=== PATIENT | female | born 1940 | race Caucasian/White ===

== ENCOUNTER 2019-08-06 15:19 | Outpatient (CLI) | payer MEDICARE, SELFPAY ==
--- NOTE | ~2019-08-06 | MM_ITS ---
EXAMINATION: MM screening [facility] BI w dashawn HISTORY: Screening mammogram TECHNIQUE: Craniocaudal and mediolateral oblique 3-D tomosynthesis images were obtained and synthetic 2-D images were generated. CAD analysis was submitted and interpreted. COMPARISON: 08/02/2018, 12/15/2017, 03/31/2017, 03/21/2017 BREAST PARENCHYMAL COMPOSITION: There are scattered areas of fibroglandular density. FINDINGS: Scattered benign-appearing calcifications are present. Stable focal asymmetry is present in the upper outer quadrant of the right breast. There is no evidence of suspicious mass, calcification , or architectural distortion to suggest malignancy in either breast. There has been no suspicious in terval change. IMPRESSION: 1. No mammographic evidence of malignancy. 2. Recommend routine screening mammography in one year. BI-RADS Category 2: Benign finding(s). Reviewed, dictated and finalized at location A. EAR ENGINEER
== END 2019-08-06 15:20 | disposition home or self-care (01) ==
LOC: ANHIMG 15:24
PROVIDERS: PCP Family Medicine; Visit Provider Family Medicine
DX: Z12.31 Encounter for screening mammogram for malignant neoplasm of breast (principal)
CPT/HCPCS: 77063; 77067

== ENCOUNTER 2020-05-27 12:15 | Outpatient (CLI) | payer MEDICARE, SELFPAY ==
--- NOTE | ~2020-05-27 | XR_ITS ---
EXAMINATION: XR lumbar spine min 4V DATE: 05/27/2020 12:42 INDICATION: Strain of muscle, fascia, and tendon of lower back, right-sided. TECHNIQUE: 5 views of lumbar spine were obtained. COMPARISON: None. FINDINGS: There is 14 degrees dextroscoliosis of lumbar spine. There is 3 mm retrolisthesis of L2 on L3 and L3 on L4. Vertebral body heights are normal. There is severely decreased disc height from L2-L 3 through L5-S1. There is multilevel facet joint osteoarthritis, severe bilaterally at L5-S1. IMPRESSION: 1. Severe lumbar spondylosis. 2. Lumbar dextroscoliosis. Reviewed, dictated and finalized at location A. SE SUPERVISOR
== END 2020-05-27 12:16 | disposition home or self-care (01) ==
PROVIDERS: PCP Family Medicine; Visit Provider Family Medicine
DX: S39.012A Strain of muscle, fascia and tendon of lower back, initial encounter (principal); M47.817 Spondylosis without myelopathy or radiculopathy, lumbosacral region; M41.9 Scoliosis, unspecified
CPT/HCPCS: 72110

== ENCOUNTER 2020-08-12 14:48 | Outpatient (CLI) | payer MEDICARE, SELFPAY ==
--- NOTE | ~2020-08-12 | MM_ITS ---
EXAMINATION: MM screening [facility] BI w dashawn HISTORY: Screening mammogram TECHNIQUE: Craniocaudal and mediolateral oblique 3-D tomosynthesis images were obtained and synthetic 2-D images were generated. CAD analysis was submitted and interpreted. COMPARISON: August 06, 2019, August 02, 2018 bilateral digital screening mammogram examinations 12/15/2017 diagnostic right digital mammogram and limited right breast ultrasound 03/23/2017 diagnostic right mammogram and complete right breast ultrasound 03/21/2017 bilateral digital screening mammogram BREAST PARENCHYMAL COMPOSITION: There are scattered areas of fibroglandular density. FINDINGS: Possible asymmetric 5 mm mass in the posterior aspect of the central right breast. Asymmetry in the posterior upper outer right breast. Diagnostic right mammogram and right breast ultr asound examination are recommended. Otherwise there is no evidence of suspicious mass, calcification, or architectural distortion to sugg est malignancy in either breast. There has been no other suspicious interval change. IMPRESSION: 1. Possible 5 mm mass in posterior central right breast; asymmetry in the posterior upper outer right breast 2. Diagnostic right mammogram and right breast ultrasound examination are recommended. BI-RADS Category 0: Incomplete: Needs additional imaging evaluation. Reviewed, dictated and finalized at location A. L CONTRACTS SPECIALIST IMPRESSION: 1. Possible 5 mm mass in posterior central right breast; asymmetry in the poste rior upper outer right breast 2. Diagnostic right mammogram and right breast ultrasound examination are recom mended. BI-RADS Category 0: Incomplete: Needs additional imaging evaluation.
== END 2020-08-12 14:49 | disposition home or self-care (01) ==
LOC: ANHIMG 14:51
PROVIDERS: PCP Family Medicine; Visit Provider Family Medicine
DX: Z12.31 Encounter for screening mammogram for malignant neoplasm of breast (principal); R92.8 Other abnormal and inconclusive findings on diagnostic imaging of breast
CPT/HCPCS: 77063; 77067

== ENCOUNTER 2020-08-28 07:20 | Outpatient (CLI) | payer MEDICARE, SELFPAY ==
[2020-08-28 08:02] LABS: Hematocrit 38.5 % (37.0-47.0); Hemoglobin 13.2 g/dL (12.0-15.0); Mean Corpuscular HGB Conc 34.3 g/dl (32-36); Mean Corpuscular Hemoglobin 30.8 pg (26-34); Mean Corpuscular Volume 89.7 fl (80-100); Platelet Count Result 176 k/mm3 (150-375); Red Blood Count 4.29 M/mm3 (4.2-5.4); Red Cell Distribution Width 13.2 % (11.5-14.5); White Blood Count 4.3 K/mm3 (4.5-10.0)
== END 2020-08-28 07:21 | disposition home or self-care (01) ==
PROVIDERS: PCP Family Medicine; Visit Provider Family Medicine
DX: R19.4 Change in bowel habit (principal)
CPT/HCPCS: 36415; 84443; 85027; 87045; 87046; 87177; 87209; 87269; 87324; 87427

== ENCOUNTER 2020-09-11 11:26 | Outpatient (CLI) | payer MEDICARE, SELFPAY ==
--- NOTE | ~2020-09-11 | MMUS_ITS ---
EXAMINATION: MM diagnostic mammo unilat RT, US breast RT limited HISTORY: Possible 5 mm mass in posterior central right breast and asymmetry in the posterior upper ou ter right breast reported on August 12, 2020 screening mammogram examination TECHNIQUE: Additional 3-D tomosynthesis images of the right breast were performed and synthetic 2-D i mages were generated. Rolled medial and lateral right craniocaudal views. CAD analysis was submitted and interpreted. High resolution upper outer and lower-outer right breast ultrasound was performed. COMPARISON: August 12, 2020 bilateral digital screening mammogram FINDINGS: MAMMOGRAPHIC FINDINGS: No reproducible mass or architectural distortion is evident. ULTRASOUND: There is shadowing from a benign calcification in the upper central right breast. No suspicious mass or shadowing of the upper outer or lower outer right breast is evident. IMPRESSION: 1. No mammographic evidence of malignancy 2. Routine annual mammographic screening is recommended. BI-RADS Category 2: Benign finding(s). Reviewed, dictated and finalized at location A. PREVENTION GUARD IMPRESSION: 1. No mammographic evidence of malignancy 2. Routine annual mammographic screening is recommended. BI-RADS Category 2: Benign finding(s).
== END 2020-09-11 11:27 | disposition home or self-care (01) ==
PROVIDERS: PCP Family Medicine; Visit Provider Family Medicine
DX: N60.11 Diffuse cystic mastopathy of right breast (principal)
CPT/HCPCS: 76642; 77065

== ENCOUNTER 2020-09-24 11:54 | Outpatient (CLI) | payer MEDICARE, SELFPAY ==
[2020-09-24 12:06] LABS: Basophils Percent Auto 0.7 % (0.2-1.2); Eosinophils Absolute Auto 0.1 K/mm3 (0-0.3); Eosinophils Percent Auto 1.1 % (0-4.4); Hematocrit 39.7 % (37.0-47.0); Hemoglobin 13.5 g/dL (12.0-15.0); Immature Granulocyte Absolute 0.02 K/mm3 (0.00-0.031); Immature Granulocyte Percent A 0.4 % (0-0.5); Lymphocytes Absolute Auto 1.15 K/mm3 (0.9-3.2); Lymphocytes Percent Auto 20.7 % (18.3-44.2); Mean Corpuscular Hemoglobin 30.8 pg (26-34); Mean Corpuscular Volume 90.4 fl (80-100); Mean Platelet Volume 9.9 fl (7.4-10.4); Monocytes Absolute Auto 0.6 K/mm3 (0.1-0.6); Monocytes Percent Auto 10.1 % (2.6-8.5); Neutrophils Absolute Auto 3.7 K/mm3 (1.3-6.7); Platelet Count Result 174 k/mm3 (150-375); Red Blood Count 4.39 M/mm3 (4.2-5.4); Red Cell Distribution Width 13.8 % (11.5-14.5); White Blood Count 5.6 K/mm3 (4.5-10.0)
[2020-09-24 15:36] LABS: Alanine Aminotransferase 32 U/L (4-35); Albumin Level 4.5 g/dL (3.5-5.1); Alkaline Phosphatase 98 U/L (38-126); Anion Gap 7 mmol/L (8-16); Aspartate Amino Transferase 45 U/L (14-36); Bilirubin,Total 0.5 mg/dL (0.2-1.3); Blood Urea Nitrogen 20 mg/dL (7-17); Calcium 9.7 mg/dL (8.4-10.2); Carbon Dioxide 28 mmol/L (22-30); Chloride 103 mmol/L (98-107); Cholesterol 191 mg/dL (0-200); Estimated Glomerular Filt Rate > 60; Glucose 98 mg/dL (65-105); HDL Direct 74 mg/dL; Potassium 4.1 mmol/L (3.4-5.0); Sodium 138 mmol/L (137-145); Triglycerides 80 mg/dL (<150)
[2020-09-24 15:48] LABS: LDL Cholesterol Direct 101 mg/dL
[2020-09-24 15:59] LABS: Vitamin D 25 Hydroxy 38.8 ng/mL
[2020-09-24 16:30] LABS: Hepatitis C Virus Antibody Negative (Negative)
== END 2020-09-24 11:55 | disposition home or self-care (01) ==
LOC: ANHLAB 11:56
PROVIDERS: PCP Family Medicine; Visit Provider Family Medicine
DX: Z11.59 Encounter for screening for other viral diseases (principal); I71.2 Thoracic aortic aneurysm, without rupture; R19.8 Other specified symptoms and signs involving the digestive system and abdomen; R19.4 Change in bowel habit; I10 Essential (primary) hypertension; E78.2 Mixed hyperlipidemia; Z51.81 Encounter for therapeutic drug level monitoring; Z79.899 Other long term (current) drug therapy; E55.9 Vitamin D deficiency, unspecified
CPT/HCPCS: 36415; 80053; 80061; 82306; 84443; 85025; 86803

== ENCOUNTER 2020-11-27 10:59 | Outpatient (CLI) | payer MEDICARE, SELFPAY ==
[2020-11-27 12:29] LABS: Vitamin D 25 Hydroxy 43.6 ng/mL
== END 2020-11-27 11:00 | disposition home or self-care (01) ==
PROVIDERS: PCP Family Medicine; Visit Provider Internal Medicine Hematology & Oncology
DX: Z01.812 Encounter for preprocedural laboratory examination (principal); E55.9 Vitamin D deficiency, unspecified
CPT/HCPCS: 36415; 82306

== ENCOUNTER 2021-09-16 12:22 | Outpatient (CLI) | payer MEDICARE, SELFPAY ==
--- NOTE | ~2021-09-16 | MM_ITS ---
EXAMINATION: MM screening [facility] BI w dashawn HISTORY: Screening mammogram TECHNIQUE: Craniocaudal and mediolateral oblique 3-D tomosynthesis images were obtained and synthetic 2-D images were generated. CAD analysis was submitted and interpreted. COMPARISON: 09/11/2020, 08/12/2020, 08/06/2019, 08/02/2018 BREAST PARENCHYMAL COMPOSITION: There are scattered areas of fibroglandular density. FINDINGS: There is no suspicious mass, calcification, or architectural distortion to suggest malignan cy in either breast. There has been no suspicious interval change. IMPRESSION: 1. No mammographic evidence of malignancy. 2. Recommend routine screening mammography in one year. BI-RADS Category 1: Negative Reviewed, dictated and finalized at location A.
--- NOTE | ~2021-09-16 | MR_ITS ---
EXAMINATION: MR brain/brain stem wo con DATE: 09/16/2021 13:36 INDICATION: Other amnesia. TECHNIQUE: Magnetic resonance imaging (MRI) of the brain and brainstem was performed without intraven ous contrast. Sequences included sagittal and axial T1-weighted FSE, axial diffusion-weighted FS EPI, axial T2*-weighted GRE, axial T2-weighted FLAIR Propeller, and axial T2-weighted Propeller. Apparent diffusion coefficient (ADC) maps were created. COMPARISON: None. FINDINGS: There are scattered areas of nonspecific increased T2-weighted signal intensity in the cere bral white matter and blas, which is within normal limits for the patient's age. There is no intracra nial hemorrhage, acute infarction, or abnormal intracranial mass lesion. The ventricles are normal in size. There is mucosal thickening in the paranasal sinuses. There are likely changes of ocular lens replacement surgeries. The mastoid air cells are normal. IMPRESSION: 1. Normal aging brain. Reviewed, dictated and finalized at location A. IMPRESSION: 1. Normal aging brain.
[2021-09-16 14:19] LABS: Basophils Percent Auto 0.6 % (0.2-1.2); Eosinophils Absolute Auto 0.1 K/mm3 (0-0.3); Eosinophils Percent Auto 0.8 % (0-4.4); Immature Granulocyte Absolute 0.02 K/mm3 (0.00-0.031); Immature Granulocyte Percent A 0.3 % (0-0.5); Lymphocytes Absolute Auto 1.51 K/mm3 (0.9-3.2); Lymphocytes Percent Auto 24.4 % (18.3-44.2); Mean Corpuscular HGB Conc 34.2 g/dl (32-36); Mean Corpuscular Hemoglobin 31.6 pg (26-34); Mean Corpuscular Volume 92.2 fl (80-100); Mean Platelet Volume 9.9 fl (7.4-10.4); Monocytes Absolute Auto 0.6 K/mm3 (0.1-0.6); Monocytes Percent Auto 9.1 % (2.6-8.5); Neutrophils Percent Auto 64.8 % (45.5-73.1); Platelet Count Result 180 k/mm3 (150-375); Red Blood Count 4.12 M/mm3 (4.2-5.4); Red Cell Distribution Width 12.5 % (11.5-14.5); White Blood Count 6.2 K/mm3 (4.5-10.0)
[2021-09-16 14:32] LABS: Alanine Aminotransferase 17 U/L (4-35); Albumin Level 4.4 g/dL (3.5-5.1); Alkaline Phosphatase 83 U/L (38-126); Anion Gap 8 mmol/L (8-16); Aspartate Amino Transferase 39 U/L (14-36); Bilirubin,Total 0.7 mg/dL (0.2-1.3); Blood Urea Nitrogen 22 mg/dL (7-17); Calcium 9.6 mg/dL (8.4-10.2); Carbon Dioxide 25 mmol/L (22-30); Chloride 106 mmol/L (98-107); Cholesterol 225 mg/dL (0-200); Estimated Glomerular Filt Rate > 60; Glucose 86 mg/dL (65-110); HDL Direct 57 mg/dL; Sodium 139 mmol/L (137-145); Triglycerides 116 mg/dL (<150)
[2021-09-16 14:43] LABS: LDL Cholesterol Direct 129 mg/dL
[2021-09-16 14:59] LABS: Vitamin D 25 Hydroxy 38.6 ng/mL
== END 2021-09-16 12:23 | disposition home or self-care (01) ==
LOC: ANHIMG 12:30
PROVIDERS: PCP Family Medicine; Visit Provider Family Medicine
DX: Z12.31 Encounter for screening mammogram for malignant neoplasm of breast (principal); R41.3 Other amnesia; E78.2 Mixed hyperlipidemia; M85.80 Other specified disorders of bone density and structure, unspecified site
CPT/HCPCS: 36415; 70551; 77063; 77067; 80053; 80061; 82306; 82607; 84443; 85025

== ENCOUNTER 2021-10-29 14:21 | Outpatient (RCR) | payer MEDICARE, SELFPAY ==
[2021-10-29] MEDS: ACETAMINOPHEN 325 MG TABLET 650 MG PO (15:20)
[2021-10-29] MEDS: FAMOTIDINE 20 MG TABLET PO (15:20)
[2021-10-29] MEDS: diphenhydrAMINE HCl CAP 25 MG CAPSULE PO (15:20)
[2021-10-29 15:23] VITALS: BP 170/72; PULSE 57; TEMP 36.2; O2SAT 99
[2021-10-29] MEDS: BEBTELOVIMAB 175 MG/2 ML VIAL IV PUSH (15:53)
[2021-10-29 16:37] VITALS: BP 188/58; PULSE 51; O2SAT 100
== END 2021-10-29 16:00 ==
LOC: AMCINF 14:21
PROVIDERS: Referring Provider Family Medicine; Visit Provider Internal Medicine Hematology & Oncology
DX: U07.1 COVID-19 (principal)
CPT/HCPCS: A9270; M0222; Q0222

== ENCOUNTER 2022-01-26 10:04 | Outpatient (CLI) | payer MEDICARE, SELFPAY ==
[2022-01-26 14:44] LABS: Anion Gap 8 mmol/L (8-16); Blood Urea Nitrogen 25 mg/dL (7-17); Calcium 9.3 mg/dL (8.4-10.2); Carbon Dioxide 28 mmol/L (22-30); Chloride 101 mmol/L (98-107); Estimated Glomerular Filt Rate 60; Glucose 120 mg/dL (65-110); Potassium 4.4 mmol/L (3.4-5.0); Sodium 137 mmol/L (137-145)
== END 2022-01-26 10:05 | disposition home or self-care (01) ==
LOC: ANHLAB 10:06
PROVIDERS: PCP Family Medicine; Visit Provider Internal Medicine Cardiovascular Disease
DX: I10 Essential (primary) hypertension (principal)
CPT/HCPCS: 36415; 80048

== ENCOUNTER → 2022-03-25 10:31 | Outpatient (CLI) | payer MEDICARE, SELFPAY ==
--- NOTE | ~2022-03-25 | XR_ITS ---
XR chest 2V DATE: 03/25/2022 10:49 INDICATION: Chronic cough TECHNIQUE: 2 views COMPARISON: 07/11/2019 CTA chest 11/21/2018 2 view chest FINDINGS: Cardiomegaly. Aortic calcification and mild unfolding. No hilar or mediastinal enlargement. Bilateral hyperinflation. No pulmonary infiltrate or consolidation, pleural effusion or pulmonary vas cular congestion or pneumothorax is detected. There is osteopenia. IMPRESSION: Cardiomegaly, aortic atherosclerosis No active pulmonary disease Osteopenia Reviewed, dictated and finalized at location B.
== END ==
PROVIDERS: PCP Family Medicine; Visit Provider Family Medicine
DX: R05.3 Chronic cough (principal); I51.7 Cardiomegaly; I70.0 Atherosclerosis of aorta; M85.88 Other specified disorders of bone density and structure, other site
CPT/HCPCS: 71046

== ENCOUNTER 2022-03-29 12:52 | Outpatient (CLI) | payer MEDICARE, SELFPAY ==
--- NOTE | ~2022-03-29 | DEXA_ITS ---
Bone Density Report Name: HUYEN MANNING Age: 81 Sex: Female Ethnicity: White Date of : 1940 Indication: osteopenia; height loss; hysterectomy;postmenopausal Referring Provider: AFSHIN MURRY Study: Bone densitometry was performed. Exam Date: March 29, 2022 Accession number: [id number] Bone Density: Region BMD T-score Z-score Classification AP Spine(L1, L2) 0.857 -1.1 1.5 Osteopenia Femoral Neck (Left) 0.717 -1.2 1.2 Osteopenia Total Hip (Left) 0.775 -1.4 0.8 Osteopenia Femoral Neck (Right) 0.663 -1.7 0.7 Osteopenia Total Hip (Right) 0.831 -0.9 1.2 Normal Total Hip Mean 0.803 -1.2 1.0 Osteopenia World Health Organization criteria for BMD impression classify patients as: Normal (T-score at or above -1.0), Osteopenia (T-score between -1.0 and -2.5), or Osteoporosis (T-score at or below -2.5). 10-year Fracture Risk(1): Major Osteoporotic Fracture 13% Hip Fracture 3.7% Reported Risk Factors: [place] (), Neck BMD=0.663, BMI=23.2 (1) FRAX(R) Version 3.08. Fracture probability calculated for an untreated patient. Fracture probability may be lower if the patient has received treatment. Previous Exams: Region Exam Age BMD T-score BMD Change BMD Change Date g/cm2 vs Baseline vs Previous AP Spine (L1-L2) 03/29/2022 81 0.857 -1.1 -0.021 (-2.4%) 0.007 (0.9%) 09/14/2018 78 0.849 -1.2 -0.029 (-3.3%) -0.029 (-3.3%) 07/01/2015 75 0.878 -0.9 Total Hip(Left) 03/29/2022 81 0.775 -1.4 -0.146 (-15.9% -0.085 (-9.9%) 09/14/2018 78 0.860 -0.7 -0.061 (-6.6%) -0.061 (-6.6%) 07/01/2015 75 0.921 -0.2 Total Hip(Right) 03/29/2022 81 0.831 -0.9 -0.055 (-6.2%) -0.040 (-4.6%) 09/14/2018 78 0.871 -0.6 -0.015 (-1.7%) -0.015 (-1.7%) 07/01/2015 75 0.886 -0.5 *Denotes significance at 95% confidence level, LSC for AP Spine = 0.022 g/cm2, LSC for Total Hip = 0.027 g/cm2 Clinical Information Provided by Patient: Has used the following medications: Vitamin D Has the following medical conditions: Hysterectomy Patient maximum height was 64.5 Menopause Age: 48 Onset of menses at age 13 Number of children 4 Impression: The patient has low bone mass, based on the Right Femoral Neck T-score. The patient has an estimated ten-year risk of hip fracture of 3.7% and an estimated ten-year risk of major fracture of 13%, based on the WHO FRAX algorithm. The BMD for the Total Hip(Left) decre
== END 2022-03-29 12:53 | disposition home or self-care (01) ==
LOC: ANHIMG 12:53
PROVIDERS: PCP Family Medicine; Visit Provider Family Medicine
DX: Z78.0 Asymptomatic menopausal state (principal); M85.88 Other specified disorders of bone density and structure, other site; M85.852 Other specified disorders of bone density and structure, left thigh; M85.851 Other specified disorders of bone density and structure, right thigh
CPT/HCPCS: 77080

== ENCOUNTER 2022-04-28 13:53 | Inpatient (IN) | payer MEDICARE, SELFPAY ==
[2022-04-28] VITALS (10 sets, daily range): BP systolic 137–175; BP diastolic 83–102; PULSE 74–129; RESP 16–19; TEMP 36.3–36.6; O2SAT 94–100; BMI 24.0
--- NOTE | ~2022-04-28 | US_ITS ---
US abdomen limited INDICATION: Elevated liver enzymes. PROCEDURE: Realtime right upper abdominal ultrasound. COMPARISON: No prior studies for comparison. FINDINGS: The pancreas is normal without focal mass or pancreatic ductal dilation. There is mild int rahepatic biliary dilatation. Otherwise, normal liver echotexture. No focal hepatic mass identified. There is normal directional flow in the portal vein. The gallbladder is normal without stones, gallbladder wall thickening or pericholecystic fluid. Comm on bile duct measures 4 mm. No sonographic Mejia's sign. IMPRESSION: 1: Mild intrahepatic biliary dilatation, nonspecific. No gallstones or extrahepatic biliary dilatatio n. Reviewed, dictated and finalized at location B. IMPRESSION: 1: Mild intrahepatic biliary dilatation, nonspecific. No gallstones or extrahep atic biliary dilatation.
--- NOTE | ~2022-04-28 | XR_ITS ---
EXAMINATION: XR chest 2V DATE: 04/28/2022 14:42 INDICATION: Chest palpitations. Shortness of breath. TECHNIQUE: PA and lateral views of the chest were obtained. COMPARISON: Chest radiograph date FINDINGS: Small bilateral subpulmonic effusions. Opacities at the bilateral lung bases which could represent at electasis, pulmonary edema or pneumonia. Cardiomegaly. Calcified left hilar and mediastinal lymph nod es consistent with old granulomatous disease. Mild thoracic spondylosis. IMPRESSION: 1. Bibasilar opacities which could represent atelectasis, pulmonary edema or pneumonia. 2. Small bilateral pleural effusions. 3. Cardiomegaly. Reviewed, dictated and finalized at location A. IMPRESSION: 1. Bibasilar opacities which could represent atelectasis, pulmonary edema or pn eumonia. 2. Small bilateral pleural effusions. 3. Cardiomegaly.
--- NOTE | 2022-04-28 14:04 | ECG_ITS ---
Measurements Intervals Raphine Rate: 112 P: WI: 0 QRS: 28 QRSD: 91 T: 87 QT: 306 QTc: 419 Interpretive Statements ATRIAL FIBRILLATION WITH RAPID VENTRICULAR RESPONSE MINIMAL VOLTAGE CRITERIA FOR LVH, CONSIDER NORMAL VARIANT NONSPECIFIC ST & T-WAVE ABNORMALITY ABNORMAL ECG NO PREVIOUS ECG AVAILABLE FOR COMPARISON Electronically Signed On 04-28-2022 16:23:24 CDT by Felipe Witt M.D.
[2022-04-28 14:21] LABS: Basophils Absolute Auto 0.1 K/mm3 (0.0-0.1); Basophils Percent Auto 0.7 % (0.2-1.2); Eosinophils Absolute Auto 0.1 K/mm3 (0-0.3); Eosinophils Percent Auto 0.7 % (0-4.4); Hematocrit 37.5 % (37.0-47.0); Hemoglobin 12.6 g/dL (12.0-15.0); Immature Granulocyte Absolute 0.03 K/mm3 (0.00-0.031); Immature Granulocyte Percent A 0.4 % (0-0.5); Lymphocytes Absolute Auto 1.34 K/mm3 (0.9-3.2); Lymphocytes Percent Auto 18.8 % (18.3-44.2); Mean Corpuscular HGB Conc 33.6 g/dl (32-36); Mean Corpuscular Hemoglobin 31.9 pg (26-34); Mean Corpuscular Volume 94.9 fl (80-100); Mean Platelet Volume 11.1 fl (7.4-10.4); Monocytes Absolute Auto 0.8 K/mm3 (0.1-0.6); Monocytes Percent Auto 10.7 % (2.6-8.5); Neutrophils Absolute Auto 4.9 K/mm3 (1.3-6.7); Neutrophils Percent Auto 68.7 % (45.5-73.1); Platelet Count Result 156 k/mm3 (150-375); Red Blood Count 3.95 M/mm3 (4.2-5.4); Red Cell Distribution Width 13.9 % (11.5-14.5); White Blood Count 7.1 K/mm3 (4.5-10.0)
[2022-04-28 14:30] LABS: INR 1.1; Prothrombin Time 13.8 Seconds (11.1-14.7)
[2022-04-28 14:31] LABS: Alanine Aminotransferase 110 U/L (6-35); Albumin Level 4.1 g/dL (3.5-5.1); Alkaline Phosphatase 235 U/L (38-126); Anion Gap 12 mmol/L (8-16); Aspartate Amino Transferase 83 U/L (14-36); Bilirubin,Total 0.9 mg/dL (0.2-1.3); Blood Urea Nitrogen 17 mg/dL (7-17); Calcium 9.2 mg/dL (8.4-10.2); Carbon Dioxide 24 mmol/L (22-30); Chloride 103 mmol/L (98-107); Estimated CRCL calculation 31 ml/min; Estimated Glomerular Filt Rate 53; Glucose 108 mg/dL (65-110); Lipase 67 U/L (23-300); Partial Thromboplastin Time 21.2 SECONDS (22.3-36.8); Potassium 4.4 mmol/L (3.4-5.0); Sodium 139 mmol/L (137-145)
[2022-04-28 14:42] LABS: Troponin I < 0.012 ng/mL (0.000-0.034)
[2022-04-28] MEDS: dilTIAZem HCl INJ 25 MG/5 ML VIAL 10 MG IV PUSH (15:07)
[2022-04-28] MEDS: MORPHINE SULFATE (*CRX) 2 MG/ML INJ IV PUSH (15:07)
[2022-04-28] MEDS: dilTIAZem 100 MG/100 ML 100 MG/100 ML BAG IV CONT (15:10)
[2022-04-28] MEDS: ASPIRIN 81 MG CHEWABLE TABLET 324 MG PO (15:11)
--- NOTE | 2022-04-28 15:12 | ED.ARRPALP ---
HPI - Arrhythmia/Palpitations General Chief Complaint: Arrhythmia/Palpitations Stated Complaint: high heart rate Time Seen by Provider: 04/28/22 14:21 History of Present Illness HPI narrative: 81-year-old female presenting to the emergency department for evaluation of acute onset of atrial fibrillation. Patient had follow-up with her primary care physician and was found to be in A. fib with RVR. Patient states over the last few days she has had increased cough and wheezing. Patient also reports she has had increased right shoulder pain. Patient does have prior history of COVID and Nina and has had a cough since. Patient does have history of Alzheimer's, hypertension, high cholesterol, thoracic aortic aneurysm. Related Data Home Medications Medication Instructions Recorded Confirmed calcium carbonate 600 mg-vitamin 1 tablet PO BID 03/18/20 04/28/22 D3 10 mcg (400 unit) chewable tablet (Calcium 600 with Vitamin D3) atorvastatin 20 mg tablet 20 mg PO DAILY 03/25/22 04/28/22 losartan 25 mg tablet 25 mg PO DAILY 03/25/22 04/28/22 memantine 7 mg capsule 7 mg PO HS 04/28/22 04/28/22 sprinkle,extended release 24hr metoprolol succinate 50 mg 50 mg PO DAILY 04/28/22 04/28/22 tablet,extended release 24 hr Allergies Allergy/AdvReac Type Severity Reaction Status Date / Time No Known Allergies Allergy Mild Verified 04/28/22 12:53 [facility] Past Medical History Medical History (Updated 04/28/22 @ 20:32 by Kim Shen NP) Abnormal mammogram of right breast 2019 mammogram normal DJD (degenerative joint disease), cervical 2012 MRI cervical spine: disc bulges, facet arthritis. No spinal stenosis History of COVID-19 Hyperlipidemia Normal nuclear stress test 2.. (dimmitt/ normal myocardial perfusion. Hypotensive bp response to lexiscan infusion. went into junctional rhythm in recovery. Vitamin D deficiency White coat syndrome with hypertension Surgical History Surgical History (Updated 04/28/22 @ 20:32 by Kim Shen NP) H/O cataract extraction H/O: hysterectomy S/P bunionectomy S/P tonsillectomy and adenoidectomy S/P total knee arthroplasty Family History Family History Father Diabetes mellitus Hypertension Cerebrovascular accident Mother Hypertension Family history of Alzheimer's disease Family history of Parkinson's disease, Onset Age: 87 Sibling Cerebrovascular accident Grandparent Asthma, Onset Age: 77 Family history of coronary artery disease, Onset Age: 77 Other Family history of arthritis Social History Social History (Updated 04/28/22 @ 20:32 by Kim Shen NP) Social History: the patient lives at home with her . 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 The patient does occasionally have a did alcoholic drink. Her is the power employee benefits attorney for healthcare and she has 4 children. She denies tobacco use, marijuana or illicit drugs. Code status full code Smoking status: Never smoker Alcohol intake: current Drinks per week: 7 Substance use: never Has the Lack of Transportation Kept You From Medical Appointments or From Getting Medications?: No Within the Past 12 Months, Were You Worried Whether Your Food Would Run Out Before You Got Money to Buy More?: Never True What is Your Housing Situation Today?: I Have Housing Are You Worried That in the Next 2 Months, You May Not Have Your Own Housing to Live In?: Yes Do You Have Trouble Paying Your Heating Or Electricity Bill?: No Do You Have Trouble Paying For Medicines?: No Are You Currently Unemployed and Looking for Work?: No Highest Level of Education Completed: Decline to Answer Do You Have Trouble With Childcare or the Care of a Family Member?: No Spiritual care concerns: No Exam Narrative: APPEARANCE: Well appearing, no pain, no distress, well-nourished.
[2022-04-28 15:59] LABS: Influenza A QL RT-PCR Negative (Negative); Influenza B QL RT-PCR Negative (Negative); SARS-CoV-2 RNA PCR Negative
--- NOTE | 2022-04-28 16:26 | ADMGEN ---
This patient, Temitope Parikh, was admitted to IMU Room 202-01 @ 1620. Patient/family oriented to hospital policies and general routines including ID bracelet, bed and alarms, visiting hours, pain management, procedures, bathroom and other care routines, personal items, smoking policy, room service/diet, and visiting hours. Information on how to activate the Rapid Response Team has been discussed. Patient/Family are encouraged to report perceived risks to care and to ask questions if they do not understand what they are told or what they should do.
[2022-04-28] MEDS: ENOXAPARIN 60 MG/0.6 ML SYRINGE SUB-Q (17:23)
[2022-04-28 17:28] LABS: Troponin I < 0.012 ng/mL (0.000-0.034)
--- NOTE | 2022-04-28 18:45 | ADMGEN ---
This patient, Temitope Parikh, was admitted to IMU Room 202-01. Patient/family oriented to hospital policies and general routines including ID bracelet, bed and alarms, visiting hours, pain management, procedures, bathroom and other care routines, personal items, smoking policy, room service/diet, and visiting hours. Information on how to activate the Rapid Response Team has been discussed. Patient/Family are encouraged to report perceived risks to care and to ask questions if they do not understand what they are told or what they should do.
--- NOTE | 2022-04-28 20:23 | PM.IMHP ---
H&P: HPI History of Present Illness Date/Time: 04/28/22 20:23 Chief Complaint: Fast heart rate Narrative: this is a 81-year-old female patient who has no prior history of atrial fibrillation. The patient has chronic right shoulder pain and stated that she has been coughing ever since she had COVID this past October. The patient presented to her primary care doctor's office today and was found to be in AFib with RVR. She stated over the last couple days her cough has increased and she feels like she is wheezing. She also had increased right shoulder pain. Patient's liver enzymes are elevated AST is 83 ALT is 110 and alkaline phosphatase 235. Patient's troponins are negative x2. Patient's influenza A/B and COVID are all negative today. Chest x-ray was read as bibasilar opacities which could represent atelectasis, pulmonary edema pneumonia. Small bilateral pleural effusions. Cardiomegaly. The patient was given an aspirin, morphine Lovenox and Cardizem in the emergency room. The patient was then placed on a Cardizem drip and admitted to the IMU. The patient is being admitted to observation status on the date of service of 04/28/2022. Review of Systems Review of Systems: See HPI All systems reviewed & are unremarkable except as noted in HPI and below Constitutional: Constitutional: Reports as per HPI and Reports no additional constitutional complaints Eyes: Eyes: Reports as per HPI and Reports no additional eye complaints ENT: Reports system reviewed and no additional complaints, except as documented and Reports Normal hearing present Cardiovascular: Cardiovascular: Reports no additional cardiovascular complaints Respiratory: Respiratory: Reports no additional respiratory complaints and Reports no additional respiratory complaints Gastrointestinal: Gastrointestinal: Reports as per HPI and Reports no additional gastrointestinal complaints Musculoskeletal: Musculoskeletal: Reports no additional musculoskeletal complaints Integumentary/Breasts: Skin/Breast: Reports system reviewed and no additional complaints, except as docu and Reports as per HPI Neurologic: Reports system reviewed and no additional complaints, except as documented, Reports as per HPI and Reports Normal hearing present Psychiatric: Psychiatric: Reports no additional psychiatric complaints and Reports as per HPI Endocrine: Endocrine: Reports no additional endocrine complaints Hematologic/Lymphatic: Hematologic/Lymphatic: Reports no additional hematologic/lymphatic complaints Allergic/Immunologic: Allergic/Immunologic: Reports no additional allergic/immunologic complaints [facility] Past Medical History Medical History (Updated 04/28/22 @ 20:32 by Kim Shen NP) Abnormal mammogram of right breast 2019 mammogram normal DJD (degenerative joint disease), cervical 2012 MRI cervical spine: disc bulges, facet arthritis. No spinal stenosis History of COVID-19 Hyperlipidemia Normal nuclear stress test 08.23.19 (dimmitt/ normal myocardial perfusion. Hypotensive bp response to lexiscan infusion. went into junctional rhythm in recovery. Vitamin D deficiency White coat syndrome with hypertension Surgical History Surgical History (Updated 04/28/22 @ 20:32 by Kim Shen NP) H/O cataract extraction H/O: hysterectomy S/P bunionectomy S/P tonsillectomy and adenoidectomy S/P total knee arthroplasty Family History Family History Father Diabetes mellitus Hypertension Cerebrovascular accident Mother Hypertension Family history of Alzheimer's disease Family history of Parkinson's disease, Onset Age: 87 Sibling Cerebrovascular accident Grandparent Asthma, Onset Age: 77 Family history of coronary artery disease, Onset Age: 77 Other Family history of arthritis Social History Social History (Updated 04/28/22 @ 20:32 by Kim Shen NP) Social History:
[2022-04-28 20:46] LABS: Troponin I 0.014 ng/mL (0.000-0.034)
[2022-04-28] MEDS: MEMANTINE HCL XR 7 MG CAP PO (21:59)
[2022-04-29] VITALS (17 sets, daily range): BP systolic 120–148; BP diastolic 63–87; PULSE 57–131; RESP 16–20; TEMP 35.7–36.5; O2SAT 91–99
[2022-04-29] MEDS: dilTIAZem 100 MG/100 ML 100 MG/100 ML BAG 7 MG IV CONT (04:15)
[2022-04-29 04:46] LABS: Basophils Absolute Auto 0.1 K/mm3 (0.0-0.1); Eosinophils Absolute Auto 0.1 K/mm3 (0-0.3); Eosinophils Percent Auto 1.9 % (0-4.4); Hematocrit 36.8 % (37.0-47.0); Hemoglobin 12.2 g/dL (12.0-15.0); Immature Granulocyte Absolute 0.02 K/mm3 (0.00-0.031); Immature Granulocyte Percent A 0.4 % (0-0.5); Lymphocytes Absolute Auto 1.67 K/mm3 (0.9-3.2); Lymphocytes Percent Auto 31.9 % (18.3-44.2); Mean Corpuscular HGB Conc 33.2 g/dl (32-36); Mean Corpuscular Hemoglobin 31.4 pg (26-34); Mean Corpuscular Volume 94.8 fl (80-100); Mean Platelet Volume 11.2 fl (7.4-10.4); Monocytes Absolute Auto 0.7 K/mm3 (0.1-0.6); Monocytes Percent Auto 13.2 % (2.6-8.5); Neutrophils Absolute Auto 2.7 K/mm3 (1.3-6.7); Neutrophils Percent Auto 51.6 % (45.5-73.1); Platelet Count Result 149 k/mm3 (150-375); Red Blood Count 3.88 M/mm3 (4.2-5.4); Red Cell Distribution Width 13.8 % (11.5-14.5); White Blood Count 5.2 K/mm3 (4.5-10.0)
[2022-04-29 04:55] LABS: Alanine Aminotransferase 95 U/L (6-35); Albumin Level 3.9 g/dL (3.5-5.1); Alkaline Phosphatase 230 U/L (38-126); Anion Gap 9 mmol/L (8-16); Aspartate Amino Transferase 61 U/L (14-36); Bilirubin,Total 1.1 mg/dL (0.2-1.3); Blood Urea Nitrogen 20 mg/dL (7-17); Calcium 8.6 mg/dL (8.4-10.2); Carbon Dioxide 22 mmol/L (22-30); Chloride 104 mmol/L (98-107); Estimated CRCL calculation 32 ml/min; Estimated Glomerular Filt Rate 53; Glucose 105 mg/dL (65-110); Magnesium 1.9 mg/dL (1.6-2.3); Potassium 3.9 mmol/L (3.4-5.0); Sodium 135 mmol/L (137-145)
[2022-04-29 05:59] LABS: Hepatitis B Surface Antigen Negative (Negative)
[2022-04-29 06:05] LABS: HAV RESULT Negative (Negative); Hepatitis B Core IgM Result Negative (Negative)
[2022-04-29 06:16] LABS: Hepatitis C Virus Antibody Negative (Negative)
[2022-04-29] MEDS: ENOXAPARIN 60 MG/0.6 ML SYRINGE SUB-Q (06:25)
[2022-04-29] MEDS: FLUTICASONE PROPIONATE 0.05% NA SPR 16 GM BTL (*BKC) 2 SPRAY NASAL ×2 (08:21→16:51)
[2022-04-29] MEDS: ATORVASTATIN 20 MG TABLET PO (08:21)
--- NOTE | 2022-04-29 09:23 | PM.CNCAR ---
Assessment and Plan Assessment and plan (1) Atrial fibrillation with RVR: Code(s): I48.91 - Unspecified atrial fibrillation Status: Acute Assessment and Plan: New diagnosis symptomatic atrial fibrillation with rapid ventricular response with exertional dyspnea for approximately 3-4 days prior to admission but without decompensated heart failure. Discussed pathophysiology, management options including rate versus rhythm control strategies with the patient, her daughter and her at bedside at length. Patient is feeling much better with improved heart rate control. Resume oral metoprolol and wean diltiazem infusion as heart rate permits. Discussed options with QUENTIN guided cardioversion versus rate control strategy. After extensive discussion he would like to see how medical therapy will work today and if she remains in atrial fibrillation proceed with QUENTIN guided cardioversion tomorrow. Will allow her eat today NPO after midnight for possible QUENTIN guided cardioversion. Continue systemic anticoagulation. Transition to Eliquis 5 mg twice daily. Will resume metoprolol tartrate 25 mg p.o. q.8 hours 1st dose now with plans to up titrate metoprolol as heart rate permits with reduction in diltiazem infusion. No need to repeat 2D echocardiogram as this was performed March 2022 in our office. Serial troponins negative. Discussed the balance of embolic stroke risk with atrial fibrillation and CHADS2 Vasc score 4 recommendation for systemic anticoagulation moving forward for involving stroke risk reduction. Patient verbalized understanding and agreed with plan of care. All questions answered to their satisfaction. Recommendation to follow. (2) Essential hypertension: Code(s): I10 - Essential (primary) hypertension Status: Acute Assessment and Plan: Fair control overall. May continue losartan. (3) Abnormal liver function tests: Code(s): R79.89 - Other specified abnormal findings of blood chemistry Status: Acute Assessment and Plan: mild elevation LFTs, asymptomatic. Etiology unclear, however, possibly statin related. Will hold for now and observe response. (4) Aortic regurgitation: Code(s): I35.1 - Nonrheumatic aortic (valve) insufficiency Status: Acute Assessment and Plan: [id number] in severity by echocardiogram March 2022. Stable. (5) Thoracic aortic aneurysm, without rupture: Code(s): I71.2 - Thoracic aortic aneurysm, without rupture Status: Chronic Assessment and Plan: Stable, asymptomatic. Resume beta-lexi therapy as tolerated. (6) Mixed hyperlipidemia: Code(s): E78.2 - Mixed hyperlipidemia Status: Acute Assessment and Plan: Hold atorvastatin for now given abnormal LFTs. History of Present Illness History of Present Illness Consult date/time: Date of service: 04/29/22 09:23 Requesting physician: Kim Shen NP Consult reason: atrial fibrillation Reason For Visit: a fib with rvr Narrative: Patient is a very pleasant 81-year-old female known to me as an outpatient with past medical history significant for hypertension, hyperlipidemia, history of PSVT, PACs, mild ascending thoracic aneurysm, aortic and mitral regurgitation who presented emergency room with complaints of 3-4 days of worsening fatigue and exertional dyspnea just walking from room to room in her home which is new. She presented to her primary care physician's office where she was found to be in atrial fibrillation with RVR and subsequently referred to the emergency department. She was found to be in AFib RVR for which diltiazem infusion was initiated. her symptoms have improved with better heart rate control. she denies recent illnesses or sick contacts, bleeding, falls, near-syncope or syncope. No chest pain lower extremity edema, orthopnea or PND. She states she has not slept well due to feeling anxious and fregoso
[2022-04-29] MEDS: METOPROLOL TARTRATE 25 MG TABLET PO ×3 (09:32→21:12)
--- NOTE | 2022-04-29 17:25 | PM.IMPN ---
Progress Note: A&P Assessment and Plan (1) Atrial fibrillation with RVR: Code(s): I48.91 - Unspecified atrial fibrillation Status: Acute Assessment and Plan: -continue with Cardizem drip. -cardiology has been consulted and their input was greatly be appreciated. - Stevo Vasc score is a 5 and the patient was started on Lovenox. - The patient was already on metoprolol at home. Resume when feasible -an echo has been ordered. 04/29/2022 interval history: 81-year-old female presented with a new onset atrial fibrillation patient was started on diltiazem drip rate is trending down and patient is feeling much better compared to when she arrived, today patient seen by Cardiology and added metoprolol 25mg q8 in an attempt to wean the patient off the drip, the assistant food service director also discussed the patient does not convert by tomorrow patient may need QUENTIN guided cardioversion. patient CHADS2 Vasc score is 4 and assistant food service director recommended systemic anticoagulation and patient started on Eliquis 5 mg b.i.d., will have a cardiac echo and further recommendation to follow, will continue to monitor. (2) Hyperlipidemia: Code(s): E78.5 - Hyperlipidemia, unspecified Status: Acute Assessment and Plan: -continue with Lipitor (3) Alzheimer's dementia: Qualifiers: Alzheimer's disease onset: unspecified onset Dementia behavioral disturbance: without behavioral disturbance Qualified Code(s): G30.9 - Alzheimer's disease, unspecified; F02.80 - Dementia in other diseases classified elsewhere without behavioral disturbance Code(s): G30.9 - Alzheimer's disease, unspecified; F02.80 - Dementia in other diseases classified elsewhere, unspecified severity, without behavioral disturbance, psychotic disturbance, mood disturbance, and anxiety Status: Acute Assessment and Plan: -continue with Namenda (4) Essential hypertension: Code(s): I10 - Essential (primary) hypertension Status: Acute Assessment and Plan: -the patient had been on losartan and metoprolol at home. Those are on hold while she is on a Cardizem drip. May resume them when the patient is off of the Cardizem drip. (5) Mixed hyperlipidemia: Code(s): E78.2 - Mixed hyperlipidemia Status: Acute Subjective Date/time seen: 04/29/22 17:25 Fast heart rate HPI-Narrative: ?this is a 81-year-old female patient who has no prior history of atrial fibrillation.? The patient has chronic right shoulder pain and stated that she has been coughing ever since she had COVID this past October.? The patient presented to her primary care doctor's office today and was found to be in AFib with RVR.? She stated over the last couple days her cough has increased and she feels like she is wheezing.? She also had increased right shoulder pain.? Patient's liver enzymes are elevated AST is 83 ALT is 110 and alkaline phosphatase 235.? Patient's troponins are negative x2.? Patient's influenza A/B and COVID are all negative today.? Chest x-ray was read as bibasilar opacities which could represent atelectasis, pulmonary edema pneumonia.? Small bilateral pleural effusions.? Cardiomegaly.? The patient was given an aspirin, morphine Lovenox and Cardizem in the emergency room.? The patient was then placed on a Cardizem drip and admitted to the IMU.? The patient is being admitted to observation status on the date of service of 04/28/2022. 04/29/2022 interval history: 81-year-old female presented with a new onset atrial fibrillation patient was started on diltiazem drip rate is trending down and patient is feeling much better compared to when she arrived, today patient seen by Cardiology and added metoprolol 25mg q8 in an attempt to wean the patient off the drip, the assistant food service director also discussed the patient does not convert by tomorrow patient may need QUENTIN guided cardioversion. patient CHADS2 Vasc score is 4 and assistant food service director recommended systemic anticoa
[2022-04-29] MEDS: APIXABAN 5 MG TABLET PO (21:12)
[2022-04-29] MEDS: MEMANTINE HCL XR 7 MG CAP PO (21:12)
[2022-04-30] VITALS (20 sets, daily range): BP systolic 131–176; BP diastolic 63–120; PULSE 84–139; RESP 12–20; TEMP 36–37; O2SAT 89–98
[2022-04-30] MEDS: hydrALAZINE HCL 20 MG/ML VIAL 10 MG IV PUSH (05:48)
[2022-04-30] MEDS: METOPROLOL TARTRATE 25 MG TABLET PO ×2 (06:46→17:08)
[2022-04-30 10:57] LABS: Hemoglobin 13.4 g/dL (12.0-15.0); Mean Corpuscular HGB Conc 34.4 g/dl (32-36); Mean Corpuscular Hemoglobin 30.8 pg (26-34); Mean Corpuscular Volume 89.7 fl (80-100); Mean Platelet Volume 11.4 fl (7.4-10.4); Platelet Count Result 192 k/mm3 (150-375); Red Blood Count 4.35 M/mm3 (4.2-5.4); Red Cell Distribution Width 13.7 % (11.5-14.5); White Blood Count 7.2 K/mm3 (4.5-10.0)
[2022-04-30 11:17] LABS: Anion Gap 11 mmol/L (8-16); Blood Urea Nitrogen 14 mg/dL (7-17); Calcium 8.8 mg/dL (8.4-10.2); Carbon Dioxide 22 mmol/L (22-30); Chloride 95 mmol/L (98-107); Estimated CRCL calculation 44 ml/min; Estimated Glomerular Filt Rate > 60; Glucose 123 mg/dL (65-110); Magnesium 1.8 mg/dL (1.6-2.3); Potassium 3.8 mmol/L (3.4-5.0); Sodium 128 mmol/L (137-145)
[2022-04-30] MEDS: APIXABAN 5 MG TABLET PO (11:22)
[2022-04-30] MEDS: FLUTICASONE PROPIONATE 0.05% NA SPR 16 GM BTL (*BKC) 2 SPRAY NASAL ×2 (11:22→17:08)
[2022-04-30] MEDS: ATORVASTATIN 20 MG TABLET PO (11:22)
[2022-04-30 11:26] LABS: INR 1.2; Prothrombin Time 14.9 Seconds (11.1-14.7)
--- NOTE | 2022-04-30 12:08 | PM.PNCARD ---
Progress Note: A&P Assessment and Plan (1) Atrial fibrillation with RVR: Code(s): I48.91 - Unspecified atrial fibrillation Status: Acute Assessment and Plan: New diagnosis symptomatic atrial fibrillation with rapid ventricular response with exertional dyspnea for approximately 3-4 days prior to admission but without decompensated heart failure. Remains unacceptably tachycardic despite rate controlling agents Plan to undergo QUENTIN/DCCV today (2) Essential hypertension: Code(s): I10 - Essential (primary) hypertension Status: Acute Assessment and Plan: Fair control overall. May continue losartan. (3) Abnormal liver function tests: Code(s): R79.89 - Other specified abnormal findings of blood chemistry Status: Acute Assessment and Plan: mild elevation LFTs, asymptomatic. Etiology unclear, however, possibly statin related. Will hold for now and observe response. (4) Aortic regurgitation: Code(s): I35.1 - Nonrheumatic aortic (valve) insufficiency Status: Acute Assessment and Plan: [id number] in severity by echocardiogram March 2022. Stable. (5) Thoracic aortic aneurysm, without rupture: Code(s): I71.2 - Thoracic aortic aneurysm, without rupture Status: Chronic Assessment and Plan: Stable, asymptomatic. Resume beta-lexi therapy as tolerated. (6) Mixed hyperlipidemia: Code(s): E78.2 - Mixed hyperlipidemia Status: Acute Assessment and Plan: Hold atorvastatin for now given abnormal LFTs. Subjective Date/time seen: 04/30/22 12:08 Cardiology follow up for atrial fibrillation Remains in atrial fibrillation with RVR today. No shortness of breath or chest pain but she does feel palpitations. Review of Systems Review of Systems: All systems reviewed & are unremarkable except as noted in HPI and below Constitutional: Constitutional: Reports as per HPI and Reports no additional constitutional complaints Eyes: Eyes: Reports as per HPI and Reports no additional eye complaints ENT: Reports system reviewed and no additional complaints, except as documented and Reports as per HPI Cardiovascular: Cardiovascular: Reports as per HPI and Reports no additional cardiovascular complaints Respiratory: Respiratory: Reports as per HPI and Reports no additional respiratory complaints Gastrointestinal: Gastrointestinal: Reports as per HPI and Reports no additional gastrointestinal complaints Genitourinary: Genitourinary: Reports as per HPI Musculoskeletal: Musculoskeletal: Reports no additional musculoskeletal complaints and Reports as per HPI Integumentary/Breasts: Skin/Breast: Reports system reviewed and no additional complaints, except as docu and Reports as per HPI Neurologic: Reports system reviewed and no additional complaints, except as documented and Reports as per HPI Psychiatric: Psychiatric: Reports no additional psychiatric complaints and Reports as per HPI Endocrine: Endocrine: Reports no additional endocrine complaints and Reports as per HPI Hematologic/Lymphatic: Hematologic/Lymphatic: Reports no additional hematologic/lymphatic complaints and Reports as per HPI Allergic/Immunologic: Allergic/Immunologic: Reports no additional allergic/immunologic complaints and Reports as per HPI Exam Const: General: comfortable, no acute distress, alert and awake Orientation/consciousness: patient oriented x3 HENMT: Head: normal to inspection Eyes: General: appearance normal, both eyes and all related structures Pupils: Equal, round and reactive pupils present Neck: Neck: normal visual inspection, supple and no JVD Carotids: normal carotid upstroke Resp: Effort & Inspection: normal respiratory effort Auscultation: clear to auscultation bilaterally Cardio: Rate: tachycardic Rhythm: abnormal rhythm irregularly irregular Heart sounds: S1 normal heart sound present, S2 normal heart sound pres
--- NOTE | 2022-04-30 12:11 | ECG_ITS ---
Measurements Intervals [place] Rate: 91 P: 80 ME: 157 QRS: 33 QRSD: 99 T: 70 QT: 353 QTc: 435 Interpretive Statements SINUS RHYTHM LEFT VENTRICULAR HYPERTROPHY AND ST-T CHANGE BORDERLINE ECG COMPARED TO ECG 04/28/2022 14:08:31 SINUS RHYTHM HAS REPLACED ATRIAL FIBRILLATION Electronically Signed On 04-30-2022 16:59:43 CDT by Felipe Witt M.D.
--- NOTE | 2022-04-30 13:08 | WPDMODSED ---
Moderate Sedation Note-Pt Data Patient Data Diagnosis: Atrial fibrillation with RVR Present Complaint: Atrial fibrillation with RVR Procedure to be performed/Plan: QUENTIN guided DCCV Allergies Allergy/AdvReac Type Severity Reaction Status Date / Time No Known Allergies Allergy Mild Verified 04/28/22 12:53 Home Medications Medication Instructions Recorded Confirmed Type calcium carbonate 600 mg-vitamin 1 tablet PO BID 03/18/20 04/28/22 History D3 10 mcg (400 unit) chewable tablet (Calcium 600 with Vitamin D3) fluticasone propionate 50 See Rx Instructions .Route 12/24/21 04/28/22 Rx mcg/actuation nasal .COMPLEX #48 mL spray,suspension atorvastatin 20 mg tablet 20 mg PO DAILY 03/25/22 04/28/22 History losartan 25 mg tablet 25 mg PO DAILY 03/25/22 04/28/22 History memantine 7 mg capsule 7 mg PO HS 04/28/22 04/28/22 History sprinkle,extended release 24hr metoprolol succinate 50 mg 50 mg PO DAILY 04/28/22 04/28/22 History tablet,extended release 24 hr Current Medications: Active Medications Apixaban (Apixaban 5 Mg Tablet) 5 mg PO Q12HR [facility] Last Admin: 04/30/22 11:22 Dose: 5 mg Atorvastatin Calcium (Atorvastatin 20 Mg Tablet) 20 mg PO DAILY [facility] Last Admin: 04/30/22 11:22 Dose: 20 mg Calcium Carbonate (Calcium/Vitamin D 500 Mg Tablet) 500 mg PO BID [facility] Last Admin: 04/30/22 11:22 Dose: 500 mg Fluticasone Propionate (Fluticasone Propionate 0.05% Na Spr 16 Gm Btl (*Bkc)) 2 spray NASAL BID [facility] Last Admin: 04/30/22 11:22 Dose: 2 spray Diltiazem HCl (Cardizem 100 Mg/100 Ml) 100 mg in 100 mls @ 7 mls/hr IV CONT .[id number] [facility] Last Infusion: 04/29/22 11:11 Dose: Infused Memantine (Memantine Hcl Xr 7 Mg Cap) 7 mg PO HS [facility] Last Admin: 04/29/22 21:12 Dose: 7 mg Menthol/Methyl Salicylate (Menthol 10% / Methyl Salicylate 15% 57 Gm Tube) 1 applic TOPICAL BID PRN PRN Reason: Muscle/Joint Pain Metoprolol Tartrate (Metoprolol Tartrate 25 Mg Tablet) 25 mg PO Q8HR [facility] Last Admin: 04/30/22 06:46 Dose: 25 mg Perflutren Lipid Microsphere (Perflutren Lipid Microspheres 1.5 Ml Vial Diluted To 10 Ml Total Volume) 0 ml IV PUSH ONCE PRN; Protocol PRN Reason: adequate visualization Stop: 04/30/22 20:24 Sedation/Anesthesia: No previous sedation/anesthesia problems (including family history). [facility] Past Medical History Medical History Abnormal mammogram of right breast 2019 mammogram normal DJD (degenerative joint disease), cervical 2012 MRI cervical spine: disc bulges, facet arthritis. No spinal stenosis History of COVID-19 Hyperlipidemia Normal nuclear stress test 2.20.20 (dimmitt/ normal myocardial perfusion. Hypotensive bp response to lexiscan infusion. went into junctional rhythm in recovery. Vitamin D deficiency White coat syndrome with hypertension Surgical History Surgical History H/O cataract extraction H/O: hysterectomy S/P bunionectomy S/P tonsillectomy and adenoidectomy S/P total knee arthroplasty Family History Family History Father Diabetes mellitus Hypertension Cerebrovascular accident Mother Hypertension Family history of Alzheimer's disease Family history of Parkinson's disease, Onset Age: 87 Sibling Cerebrovascular accident Grandparent Asthma, Onset Age: 77 Family history of coronary artery disease, Onset Age: 77 Other Family history of arthritis Social History Social History Social History: the patient lives at home with her . 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 The patient does occasionally have a did alcoholic drink. Her is the power deputy commonwealth's attorney for healthcare and she has 4 children. She denies tobacco use, marijuana or illicit drugs. Code stat
--- NOTE | 2022-04-30 13:09 | WPDTECDV ---
QUENTIN with Cardioversion Date of procedure: 04/30/22 Procedure Type: Date of Procedure: 04/30/2022 Brief History Of Present Illness: Patient is a pleasant 81-year-old female with a history of atrial fibrillation who is referred for transesophageal echocardiogram for further evaluation for QUENTIN-guided DCCV. Procedure In Detail: After verbal and written informed consent was obtained, the patient risks, benefits, and alternatives explained in detail. The patient agreed to proceed with the plan of care as outlined above.?The patient was evaluated at bedside in the [facility] procedure room.?The posterior oropharynx, neck, and jaw angle all within normal limits on examination. Lungs were clear to auscultation. See pre-sedation note for further details. The patient was then placed in the appropriate 30 to 45 degree angle supine position at a slight left lateral decubitus position.?Patient was monitored throughout the study with telemetry, oxygen saturation, end-tidal CO2 monitoring, blood pressure, heart rate, and respirations.? The posterior hypopharynx was then locally anesthetized using repeated administration of Hurricaine spray as well as gargled viscous lidocaine.? After local anesthetic of the posterior hypopharynx was achieved and the oral bite block placed, moderate sedation was administered.? After confirmation of adequate moderate sedation, the transesophageal echocardiogram probe was advanced through the oral bite block into the posterior hypopharynx and into the esophagus easily and without complication.? Multiple, multiplanar echocardiographic images were obtained in multiple standard re- projections.? Pulsed wave, continuous-wave, and color-flow Doppler were utilized in conjunction with this study.? At the conclusion of the study, the transesophageal echocardiogram probe was removed easily and without complication.? The patient tolerated the procedure well without difficulty.? Patient was in atrial fibrillation with RVR throughout the study. At the conclusion of the QUENTIN, synchronized cardioversion was performed with anglican of sinus rhythm after 1 shock at 200J. Moderate Sedation/Anesthesia administration: Patient reports no prior problems with sedation/anesthesia. Please see pre-sedation noted for physical examination documentation. As noted above, after adequate local anesthesia of the posterior hypopharynx was achieved, a total of?1.5mg intravenous Versed and a total of 75mcg intravenous Fentanyl in multiple divided doses was administered for moderate sedation.? Sedation start time was 12:43 and end time was 13:00 for a total intra-service/procedure face-face time of 17minutes.? Sedation was administered by a qualified/certified observer Kunal EVERETT under my supervision with intra-procedure [id number] observation and management throughout the entirety of the procedure.? There were no other issues or complications and patient tolerated the procedure well. See post-anesthesia documentation. FINDINGS: LEFT VENTRICLE: Size and systolic function were within normal limits without wall motion abnormalities with ejection fraction of 60-65%. RIGHT VENTRICLE:? Size and systolic function within normal limits. LEFT ATRIUM: Mild enlargement. RIGHT ATRIUM: Normal size. INTERATRIAL SEPTUM: ? Interatrial septum is anatomically normal without evidence of shunt with color-flow Doppler. MITRAL VALVE: ? Mitral valve is anatomically normal with preserved leaflet excursion and moderate regurgitation. AORTIC VALVE: The aortic valve was an anatomically normal 3 leaflet structure with normal leaflet excursion and mild regurgitation identified. TRICUSPID VALVE: The tricuspid valve is anatomically normal with normal leaflet excursion with mild-moderate regurgitation identified.? PULMONIC VALVE: Pulmonic valve was grossly normal. There is mild pulmonary valve regurgitation. LEFT ATRIAL APPENDAGE: Anatomically normal structure with prominent pectinate muscles witho
--- NOTE | 2022-04-30 15:12 | PM.DS ---
DS: Admitting Diagnosis Discharge Date 04/30/2022 Admitting Diagnosis fast heart rate DS: Discharge Diagnosis Discharge Diagnosis (1) Atrial fibrillation with RVR: Code(s): I48.91 - Unspecified atrial fibrillation Status: Acute Assessment and Plan: -continue with Cardizem drip. -cardiology has been consulted and their input was greatly be appreciated. - Stevo Vasc score is a 5 and the patient was started on Lovenox. - The patient was already on metoprolol at home. Resume when feasible -an echo has been ordered. 04/29/2022 interval history: 81-year-old female presented with a new onset atrial fibrillation patient was started on diltiazem drip rate is trending down and patient is feeling much better compared to when she arrived, today patient seen by Cardiology and added metoprolol 25mg q8 in an attempt to wean the patient off the drip, the automatic gluing machine operator also discussed the patient does not convert by tomorrow patient may need QUENTIN guided cardioversion. patient CHADS2 Vasc score is 4 and automatic gluing machine operator recommended systemic anticoagulation and patient started on Eliquis 5 mg b.i.d., will have a cardiac echo and further recommendation to follow, will continue to monitor. (2) Hyperlipidemia: Code(s): E78.5 - Hyperlipidemia, unspecified Status: Acute Assessment and Plan: -continue with Lipitor (3) Alzheimer's dementia: Qualifiers: Alzheimer's disease onset: unspecified onset Dementia behavioral disturbance: without behavioral disturbance Qualified Code(s): G30.9 - Alzheimer's disease, unspecified; F02.80 - Dementia in other diseases classified elsewhere without behavioral disturbance Code(s): G30.9 - Alzheimer's disease, unspecified; F02.80 - Dementia in other diseases classified elsewhere, unspecified severity, without behavioral disturbance, psychotic disturbance, mood disturbance, and anxiety Status: Acute Assessment and Plan: -continue with Namenda (4) Essential hypertension: Code(s): I10 - Essential (primary) hypertension Status: Acute Assessment and Plan: -the patient had been on losartan and metoprolol at home. Those are on hold while she is on a Cardizem drip. May resume them when the patient is off of the Cardizem drip. (5) Mixed hyperlipidemia: Code(s): E78.2 - Mixed hyperlipidemia Status: Acute DS: Summary Hospital Course Reason for hospitalization: Chief Complaint: ? Fast heart rate Narrative: ?this is a 81-year-old female patient who has no prior history of atrial fibrillation.? The patient has chronic right shoulder pain and stated that she has been coughing ever since she had COVID this past October.? The patient presented to her primary care doctor's office today and was found to be in AFib with RVR.? She stated over the last couple days her cough has increased and she feels like she is wheezing.? She also had increased right shoulder pain.? Patient's liver enzymes are elevated AST is 83 ALT is 110 and alkaline phosphatase 235.? Patient's troponins are negative x2.? Patient's influenza A/B and COVID are all negative today.? Chest x-ray was read as bibasilar opacities which could represent atelectasis, pulmonary edema pneumonia.? Small bilateral pleural effusions.? Cardiomegaly.? The patient was given an aspirin, morphine Lovenox and Cardizem in the emergency room.? The patient was then placed on a Cardizem drip and admitted to the IMU.? The patient is being admitted to observation status on the date of service of 04/28/2022. Hospital Course: 81-year-old female presented with a new onset atrial fibrillation patient was started on diltiazem drip rate is trending down and patient is feeling much better compared to when she arrived,? today patient seen by Cardiology and added metoprolol 25mg q8? in an attempt to wean the patient off the drip, the automatic gluing machine operator also discussed the patient does not convert by tomorrow patient m
== END 2022-04-30 17:44 | disposition home or self-care (01) | DRG 310 ==
LOC: ANHED 15:41 → ANHIMU 16:05
PROVIDERS: Emergency Medicine; Internal Medicine; Nurse Practitioner; Admitting Provider Family Medicine; Emergency Provider Emergency Medicine; PCP Family Medicine; Visit Provider Family Medicine
PROC: B24BZZ4 Ultrasonography of Heart with Aorta, Transesophageal (ICD-10-PCS; CPT 93312; principal; 2022-04-30 12:30)
PROC: 5A2204Z Restoration of Cardiac Rhythm, Single (ICD-10-PCS; 2022-04-30 12:30)
DX: I48.91 Unspecified atrial fibrillation (principal); G30.9 Alzheimer's disease, unspecified; F02.80 Dementia in other diseases classified elsewhere, unspecified severity, without behavioral disturbance, psychotic disturbance, mood disturbance, and anxiety; I35.1 Nonrheumatic aortic (valve) insufficiency; I71.20 Thoracic aortic aneurysm, without rupture, unspecified; M47.892 Other spondylosis, cervical region; M25.511 Pain in right shoulder; E78.2 Mixed hyperlipidemia; E55.9 Vitamin D deficiency, unspecified; I10 Essential (primary) hypertension; R79.89 Other specified abnormal findings of blood chemistry; Z20.822 Contact with and (suspected) exposure to COVID-19; Z86.16 Personal history of COVID-19; Z98.49 Cataract extraction status, unspecified eye; Z79.899 Other long term (current) drug therapy
CPT/HCPCS: 36415; 71046; 76705; 80048; 80053; 80074; 83690; 83735; 84443; 84484; 85025; 85027; 85610; 85730; 87502; 92960; 93005; 93312; 93320; 93325; 96366; 96372; 96375; 96376; 99285; A9270; G0378; J0360; J1650; J2250; J2270; J3010; J7040; U0003; U0005

== ENCOUNTER → 2022-05-06 13:42 | Outpatient (CLI) | payer MEDICARE, SELFPAY ==
--- NOTE | ~2022-05-06 | XR_ITS ---
XR_[id number]_CR DATE: 05/06/2022 14:05 INDICATION: Neck pain TECHNIQUE: AP, open-mouth, odontoid, lateral and swimmer views COMPARISON: None FINDINGS: There is reversal of cervical curvature. C1 and C2 are normally aligned and the odontoid process is intact. No fracture or dislocation, locked facet or prevertebral soft tissue swelling. There is approximately 3 mm anterolisthesis at C4-5. There is moderate degenerative disc disease at C4-5 and severe degenerative disease at C5-6 and C6-7, with minimal retrolisthesis at C5-6. 2 mm anterolisthesis at C7-T1. Uncovertebral joint spurring is noted particularly at C5-6 and C6-7, especially on the right. There is prominent degenerative change at the apophyseal joints. IMPRESSION: Reversal of cervical curvature Prominent cervical spondylosis No fracture, dislocation or locked facet is detected Reviewed, dictated and finalized at [facility]. Reviewed, dictated and finalized at location A.
== END ==
PROVIDERS: PCP Family Medicine; Visit Provider Physician Assistant
DX: M54.2 Cervicalgia (principal); M53.82 Other specified dorsopathies, cervical region; M43.02 Spondylolysis, cervical region
CPT/HCPCS: 72040

== ENCOUNTER 2022-05-11 09:05 | Outpatient (CLI) | payer MEDICARE, SELFPAY ==
[2022-05-12 08:31] LABS: Kit Draw Collected
== END 2022-05-11 09:06 | disposition home or self-care (01) ==
LOC: ANHGOSHLAB 09:10
PROVIDERS: PCP Family Medicine; Visit Provider Physician Assistant
DX: R79.89 Other specified abnormal findings of blood chemistry (principal); M54.2 Cervicalgia; M54.9 Dorsalgia, unspecified
CPT/HCPCS: 36415

== ENCOUNTER 2023-01-11 08:10 | Outpatient (CLI) | payer MEDICARE, SELFPAY ==
--- NOTE | ~2023-01-11 | MM_ITS ---
EXAMINATION: MM screening [facility] BI w dashawn HISTORY: Screening mammogram TECHNIQUE: Craniocaudal and mediolateral oblique 3-D tomosynthesis images were obtained and synthetic 2-D images were generated. CAD analysis was submitted and interpreted. COMPARISON: 09/16/2021 bilateral screening mammogram 09/11/2020 diagnostic right mammogram and limited right breast ultrasound examination 08/12/2020, 08/23/2019 bilateral screening mammogram examinations BREAST PARENCHYMAL COMPOSITION: There are scattered areas of fibroglandular density. FINDINGS: There is no evidence of suspicious mass, calcification, or architectural distortion to sugg est malignancy in either breast. There has been no suspicious interval change. IMPRESSION: 1. No mammographic evidence of malignancy. 2. Recommend routine screening mammography in one year. BI-RADS Category 1: Negative Reviewed, dictated and finalized at location A.
== END 2023-01-11 08:11 | disposition home or self-care (01) ==
PROVIDERS: PCP Family Medicine; Visit Provider Physician Assistant
DX: Z12.31 Encounter for screening mammogram for malignant neoplasm of breast (principal)
CPT/HCPCS: 77063; 77067

== ENCOUNTER 2023-03-15 08:32 | Outpatient (CLI) | payer MEDICARE, SELFPAY ==
--- NOTE | ~2023-03-15 | CT_ITS ---
EXAMINATION: CTA chest DATE: 03/15/2023 09:07 INDICATION: Thoracic aortic aneurysm without rupture. TECHNIQUE: Computed tomographic angiography (CTA) of the chest was performed with 100 mL Omnipaque-35 0 intravenous contrast. Automated exposure control and iterative reconstruction technique were employ ed. The dose-length product was 181.86 mGy-cm. Maximum intensity projection 3D-reconstructions of the aorta and other arteries were constructed by the technologist on a separate workstation. COMPARISON: Chest CTA 07/11/19 FINDINGS: The lungs demonstrate mild atelectasis. Calcified left lung nodules and calcified left anurag r lymph nodes are consistent with old granulomatous disease. No pleural effusion. Cardiomegaly is not ed. No pericardial effusion. The central pulmonary is enlarged, consistent with pulmonary arterial hy pertension. The aorta measures 4.0 cm at the sinuses of Valsalva, 3.3 cm at the central articular anthony ction, 4.0 cm in the mid ascending aorta, 2.8 cm at the aortic isthmus, and 2.5 cm in the mid descend ing aorta. There is mild aortic atherosclerosis. There is cortical thinning of the kidneys. 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 There is mild thor acic spondylosis. IMPRESSION: 1. Ectasia of ascending aorta measuring 4.0 cm. Reviewed, dictated and finalized at location A.
[2023-03-15 09:02] LABS: Estimated Glomerular Filt Rate > 60
== END 2023-03-15 08:33 | disposition home or self-care (01) ==
PROVIDERS: PCP Family Medicine; Visit Provider Internal Medicine Cardiovascular Disease
DX: I77.819 Aortic ectasia, unspecified site (principal)
CPT/HCPCS: 71275; Q9967

== ENCOUNTER 2023-09-16 08:31 | Outpatient (CLI) | payer MEDICARE, SELFPAY ==
[2023-09-16 14:49] LABS: Alanine Aminotransferase 24 U/L (6-35); Albumin Level 4.3 g/dL (3.5-5.1); Alkaline Phosphatase 94 U/L (38-126); Anion Gap 8 mmol/L (8-16); Aspartate Amino Transferase 59 U/L (14-36); Bilirubin,Total 0.6 mg/dL (0.2-1.3); Blood Urea Nitrogen 22 mg/dL (7-17); Calcium 9.8 mg/dL (8.4-10.2); Carbon Dioxide 27 mmol/L (22-30); Chloride 103 mmol/L (98-107); Cholesterol 168 mg/dL (0-200); Estimated Glomerular Filt Rate > 60; Glucose 104 mg/dL (65-110); HDL Direct 55 mg/dL; Potassium 4.4 mmol/L (3.4-5.0); Sodium 138 mmol/L (137-145); Triglycerides 79 mg/dL (<150)
[2023-09-16 15:11] LABS: Basophils Absolute Auto 0.1 K/mm3 (0.0-0.1); Basophils Percent Auto 0.8 % (0.2-1.2); Eosinophils Absolute Auto 0.1 K/mm3 (0-0.3); Eosinophils Percent Auto 1.3 % (0-4.4); Hematocrit 39.5 % (37.0-47.0); Hemoglobin 13.2 g/dL (12.0-15.0); Immature Granulocyte Absolute 0.03 K/mm3 (0.00-0.031); Immature Granulocyte Percent A 0.5 % (0-0.5); Lymphocytes Absolute Auto 1.14 K/mm3 (0.9-3.2); Lymphocytes Percent Auto 19.1 % (18.3-44.2); Mean Corpuscular HGB Conc 33.4 g/dl (32-36); Mean Corpuscular Hemoglobin 31.1 pg (26-34); Mean Corpuscular Volume 92.9 fl (80-100); Mean Platelet Volume 10.4 fl (7.4-10.4); Monocytes Absolute Auto 0.7 K/mm3 (0.1-0.6); Monocytes Percent Auto 11.4 % (2.6-8.5); Neutrophils Percent Auto 66.9 % (45.5-73.1); Platelet Count Result 180 k/mm3 (150-375); Red Blood Count 4.25 M/mm3 (4.2-5.4); Red Cell Distribution Width 13.2 % (11.5-14.5)
[2023-09-16 16:01] LABS: Folic Acid 9.8 ng/mL (2.76->20)
[2023-09-16 16:38] LABS: LDL Cholesterol Direct 94 mg/dL
== END 2023-09-16 08:32 | disposition home or self-care (01) ==
PROVIDERS: PCP Family Medicine; Visit Provider Physician Assistant
DX: G30.9 Alzheimer's disease, unspecified (principal); F02.80 Dementia in other diseases classified elsewhere, unspecified severity, without behavioral disturbance, psychotic disturbance, mood disturbance, and anxiety; Z79.899 Other long term (current) drug therapy; M85.80 Other specified disorders of bone density and structure, unspecified site; I10 Essential (primary) hypertension; E78.2 Mixed hyperlipidemia
CPT/HCPCS: 36415; 80053; 80061; 82607; 82746; 84443; 85025

== ENCOUNTER 2024-03-12 07:52 | Outpatient (CLI) | payer MEDICARE, SELFPAY ==
--- NOTE | ~2024-03-12 | MM_ITS ---
EXAMINATION: MM screening [facility] BI w dashawn HISTORY: Screening mammogram TECHNIQUE: Craniocaudal and mediolateral oblique 3-D tomosynthesis images were obtained and synthetic 2-D images were generated. CAD analysis was submitted and interpreted. COMPARISON: 01/11/2023, 09/16/2021, 08/12/2020 BREAST PARENCHYMAL COMPOSITION:Not Dense. There are scattered areas of fibroglandular density. FINDINGS: No suspicious mass, calcification, or architectural distortion are identified in either sandra ast to suggest malignancy. There has been no suspicious interval change. IMPRESSION: No mammographic evidence of malignancy. Recommend routine screening mammography in one year. BI-RADS Category 1: Negative Reviewed, dictated and finalized at location .
--- NOTE | ~2024-03-12 | DEXA_ITS ---
Bone Density Report Name: HUYEN MANNING Age: 83 Sex: Female Ethnicity: White Date of : 1940 Indication: osteopenia; height loss; hysterectomy; Referring Provider: DANISH, KEVIN Jean-Baptiste Study: Bone densitometry was performed. Exam Date: March 12, 2024 Accession number: [id number] Bone Density: Region BMD T-score Z-score Classification AP Spine(L1, L2) 0.861 -1.1 1.6 Osteopenia Femoral Neck (Left) 0.655 -1.7 0.7 Osteopenia Total Hip (Left) 0.786 -1.3 1.0 Osteopenia Femoral Neck (Right) 0.619 -2.1 0.4 Osteopenia Total Hip (Right) 0.729 -1.7 0.5 Osteopenia Total Hip Mean 0.758 -1.5 0.8 Osteopenia World Health Organization criteria for BMD impression classify patients as: Normal (T-score at or above -1.0), Osteopenia (T-score between -1.0 and -2.5), or Osteoporosis (T-score at or below -2.5). 10-year Fracture Risk(1): Major Osteoporotic Fracture 15% Hip Fracture 5.0% Reported Risk Factors: [place] (), Neck BMD=0.619, BMI=23.5 (1) FRAX(R) Version 3.08. Fracture probability calculated for an untreated patient. Fracture probability may be lower if the patient has received treatment. Previous Exams: Region Exam Age BMD T-score BMD Change BMD Change Date g/cm2 vs Baseline vs Previous AP Spine (L1-L2) 03/12/2024 83 0.861 -1.1 -0.017 (-2.0%) 0.004 (0.5%) 03/29/2022 81 0.857 -1.1 -0.021 (-2.4%) 0.007 (0.9%) 09/14/2018 78 0.849 -1.2 -0.029 (-3.3%) -0.029 (-3.3%) 07/01/2015 75 0.878 -0.9 Total Hip(Left) 03/12/2024 83 0.786 -1.3 -0.135 (-14.7% 0.011 (1.4%) 03/29/2022 81 0.775 -1.4 -0.146 (-15.9% -0.085 (-9.9%) 09/14/2018 78 0.860 -0.7 -0.061 (-6.6%) -0.061 (-6.6%) 07/01/2015 75 0.921 -0.2 Total Hip(Right) 03/12/2024 83 0.729 -1.7 -0.157 (-17.7% -0.102 (-12.2% 03/29/2022 81 0.831 -0.9 -0.055 (-6.2%) -0.040 (-4.6%) 09/14/2018 78 0.871 -0.6 -0.015 (-1.7%) -0.015 (-1.7%) 07/01/2015 75 0.886 -0.5 *Denotes significance at 95% confidence level, LSC for AP Spine = 0.022 g/cm2, LSC for Total Hip = 0.027 g/cm2 Clinical Information Provided by Patient: Has used the following medications: Calcium Has the following medical conditions: Hysterectomy Patient maximum height was 64.5 Menopause Age: 48 Drinks caffeinated beverages Onset of menses at age 15 Number of children 4 Impression: The patient has low bone mass, based on the Right Fem
== END 2024-03-12 07:53 | disposition home or self-care (01) ==
LOC: ANHIMG 07:54
PROVIDERS: PCP Family Medicine; Visit Provider Physician Assistant
DX: Z12.31 Encounter for screening mammogram for malignant neoplasm of breast (principal); M85.89 Other specified disorders of bone density and structure, multiple sites; Z78.0 Asymptomatic menopausal state
CPT/HCPCS: 77063; 77067; 77080

== ENCOUNTER 2024-06-29 14:13 | Outpatient (CLI) | payer MEDICARE, SELFPAY ==
[2024-06-29 18:04] LABS: Basophils Absolute Auto 0.1 K/mm3 (0.0-0.1); Basophils Percent Auto 0.9 % (0.2-1.2); Eosinophils Absolute Auto 0.2 K/mm3 (0-0.3); Eosinophils Percent Auto 1.9 % (0-4.4); Hematocrit 39.7 % (37.0-47.0); Hemoglobin 12.9 g/dL (12.0-15.0); Immature Granulocyte Absolute 0.02 K/mm3 (0.00-0.031); Immature Granulocyte Percent A 0.3 % (0-0.5); Lymphocytes Absolute Auto 1.48 K/mm3 (0.9-3.2); Lymphocytes Percent Auto 18.9 % (18.3-44.2); Mean Corpuscular HGB Conc 32.5 g/dl (32-36); Mean Corpuscular Hemoglobin 30.6 pg (26-34); Mean Corpuscular Volume 94.1 fl (80-100); Mean Platelet Volume 11.2 fl (7.4-10.4); Monocytes Absolute Auto 0.8 K/mm3 (0.1-0.6); Monocytes Percent Auto 10.7 % (2.6-8.5); Neutrophils Absolute Auto 5.3 K/mm3 (1.3-6.7); Neutrophils Percent Auto 67.3 % (45.5-73.1); Platelet Count Result 161 k/mm3 (150-375); Red Blood Count 4.22 M/mm3 (4.2-5.4); White Blood Count 7.9 K/mm3 (4.5-10.0)
[2024-06-29 18:15] LABS: Alanine Aminotransferase 46 U/L (6-35); Albumin Level 4.1 g/dL (3.5-5.1); Alkaline Phosphatase 134 U/L (38-126); Anion Gap 3 mmol/L (4-12); Aspartate Amino Transferase 54 U/L (14-36); Bilirubin,Total 0.9 mg/dL (0.2-1.3); Blood Urea Nitrogen 31 mg/dL (7-17); Calcium 9.6 mg/dL (8.4-10.2); Carbon Dioxide 29 mmol/L (22-30); Chloride 105 mmol/L (98-107); Estimated Glomerular Filt Rate 53; Glucose 81 mg/dL (65-110); Potassium 3.9 mmol/L (3.4-5.0); Sodium 137 mmol/L (137-145)
[2024-06-29 18:21] LABS: NT Pro B Type Natriuretic Pept 1680 pg/mL (19.9-100)
== END 2024-06-29 14:14 | disposition home or self-care (01) ==
LOC: ANHGOSHLAB 14:14
PROVIDERS: PCP Family Medicine; Visit Provider Student in an Organized Health Care Education/Training Program
DX: M79.89 Other specified soft tissue disorders (principal); L03.90 Cellulitis, unspecified
CPT/HCPCS: 36415; 80053; 83880; 85025

== ENCOUNTER 2024-07-11 09:31 | Outpatient (CLI) | payer MEDICARE, SELFPAY ==
--- NOTE | 2024-07-11 09:40 | ECHO_ITS ---
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 Summary 1. Complete two-dimensional, color flow and Doppler transthoracic echocardiogram is performed. 2. Left ventricular chamber dimension is normal. 3. Left ventricular systolic function is normal, estimated at 55-60%. 4. The left ventricular diastolic function is abnormal. 5. E/e' 10 is mildly elevated. 6. Atrial fibrillation. 7. Left atrial chamber dimension is severely enlarged. 8. Right atrial chamber dimension is moderately enlarged. 9. There is mild aortic valve sclerosis. 10. There is moderate aortic valve regurgitation. 11. The mitral valve has moderately calcified annulus. 12. There is moderate mitral valve regurgitation. 13. There is moderate to severe tricuspid valve regurgitation. 14. No pulmonary hypertension, estimated pulmonary arterial systolic pressure is 35 mmHg. 15. There is trace pulmonic regurgitation. Left Ventricle Atrial fibrillation. E/e' 10 is mildly elevated. Left ventricular chamber dimension is normal. Left ventricular systolic function is normal, estimated at 55-60%. The left ventricular diastolic function is abnormal. Right Ventricle Right ventricular systolic function is normal and with normal TAPSE 1.7 cm. Right ventricular chamber dimension is normal. Left Atria Left atrial chamber dimension is severely enlarged. Right Atria Right atrial chamber dimension is moderately enlarged. Aortic Valve The aortic valve is trileaflet. There is mild aortic valve sclerosis. There is no aortic valve stenosis. There is moderate aortic valve regurgitation. Pulmonic Valve There is trace pulmonic regurgitation. Mitral Valve The mitral valve has moderately calcified annulus. There is no mitral valve stenosis. There is moderate mitral valve regurgitation. Tricuspid Valve There is moderate to severe tricuspid valve regurgitation. No pulmonary hypertension, estimated pulmonary arterial systolic pressure is 35 mmHg. Pericardium/Pleural There is no pericardial effusion. Inferior Vena Cava Normal inferior vena cava with >50% collapse upon inspiration consistent with normal right atrial pressure, 5 mmHg. Aorta The aortic root size at the sinus of Valsalva is normal. Left Ventricular Outflow Tract Name Value Normal LVOT 2D LVOT Diameter 2.0 cm LVOT Doppler LVOT Peak Gradient 3 mmHg LVOT Mean Gradient 1 mmHg LVOT VTI 16 cm LVOT VTI/AV VTI Ratio 0.8 LVOT Stroke Volume 51 ml LVOT CO 4.2 l/min LVOT CI 2.6 l/min/m2 Pulmonic Valve Name Value Normal PV Doppler PV Peak Gradient 3 mmHg PV Regurgitation Doppler DE Peak End Diastolic Velocity 138 cm/s Mitral Valve Name Value Normal MV Doppler MV Decel [place] 777 cm/s2 MV PHT 42 ms MV Area (PHT) 5.3 cm2 4.0-5.0 MV Diastolic Function MV E Peak Velocity 111 cm/s MV A Peak Velocity 1 cm/s MV E/A 204.5 MV Decel Time 143 ms Tricuspid Valve Name Value Normal TV Regurgitation Doppler TR Peak Velocity 273 cm/s TR Peak Gradient 30 mmHg Estimated PAP/RSVP RA Pressure 5 mmHg <=5 PA Systolic Pressure 35 mmHg <36 RV Systolic Pressure 35 mmHg <36 Aorta Name Value Normal Ascending Aorta Ao Root Diameter (MM) 3.1 cm Ao Root Diam Index (MM) 1.9 cm/m2 Aortic Valve Name Value Normal AV Doppler AV Peak Velocity 133 cm/s AV Peak Gradient 7 mmHg AV Mean Gradient 3 mmHg AV VTI 21 cm AV Area (Cont Eq VTI) 2.5 cm2 >=3.0 AV Area (Cont Eq Ugo) 2.1 cm2 AV Regurgitation 2D LVOT Area 3.3 cm2 AV Regurgitation Doppler AR Decel Time 2,010 ms AR Decel [place] 246 cm/s2 AR PHT 583 ms Ventricles Name Value Normal LV Dimensions 2D/MM IVS Diastolic Thickness (2D) 1.1 cm 0.6-1.0 IVS Diastole Thickness (MM) 0.9 cm 0.6-0.9 LVID Diastole (2D) 4.6 cm 3.8-5.2 LVID Diastole (MM) 5.0 cm 3.8-5.2 LVIW Diastolic Thickness (2D) 1.0 cm 0.6-0.9 LVIW Diastolic Thickness (MM) 0.9 cm 0.6-0.9 LVID Systole (2D) 2.8 cm 2.2-3.5 LVID Systole (MM) 3.1 cm 2.2-3.5 LVOT Diameter 2.0 cm LV Mass (2D Cubed) 160.82 g 67.00-162.00 LV Mass Index (2D Cubed) 100 g/m2 43-95 Relative Wall Thickness (2D) 0.43 LV Mass (MM Cubed) 156.34 g 67.00-162.00 LV Mass Index (MM Cubed) 98 g/m2 43-95 Relative Wall Thickness (MM) 0.35 LV Fractional Shortening/Ejection Fraction 2D/MM LV Fractional Shortening (2D) 38 % 27-45 LV Fractional Shortening (MM) 38 % 27-45 LV EF (MM Teicholz) 68 % 54-74 LV EF (2D Teicholz) 69 % 54-74 LV Diastolic Volume (4C MOD) 60 ml LV EF (4C MOD) 52 % LV Diastolic Volume (2C MOD) 62 ml LV EF (2C MOD) 61 % LV Diastolic Volume (BP MOD) 64 ml 46-106 LV Diastolic Volume Index (BP MOD) 40 ml/m2 29-61 LV Systolic Volume (BP MOD) 27 ml 14-42 LV Systolic Volume Index (BP MOD) 17 ml/m2 8-24 LV EF (BP MOD) 57 % 54-74 LV Diastolic Length (4C) 6.7 cm LV Systolic Length (4C) 6.0 cm LV Stroke Volume (4C MOD) 31 ml Atria Name Value Normal LA Dimensions LA Dimension (MM) 4.2 cm 2.7-3.8 LA Volume (4C A-L) 74 ml LA Volume (BP A-L) 79 ml RA Dimensions RA Area (4C) 22.4 cm2 <=18.0 Report Signatures
== END 2024-07-11 09:32 | disposition home or self-care (01) ==
LOC: ANHCARD 09:32
PROVIDERS: PCP Family Medicine; Visit Provider Family Medicine
DX: I48.91 Unspecified atrial fibrillation (principal); I08.0 Rheumatic disorders of both mitral and aortic valves; I35.0 Nonrheumatic aortic (valve) stenosis; I35.8 Other nonrheumatic aortic valve disorders; M79.89 Other specified soft tissue disorders
CPT/HCPCS: 93306

== ENCOUNTER 2024-08-03 14:45 | Outpatient (CLI) | payer MEDICARE, SELFPAY ==
--- OUTSIDE RECORDS SUMMARY | 2024-08-03 14:48 | XMS_ITS | Patient Health Summary ---
Author Organization [facility] Address [address] [place] [address] Care Team Providers Care Computer Tester Name Role Phone Dennys Murry MD Unavailable [phone] Antonette Menezes MD Primary Care Provider [phone] Efren Segovia MD Unavailable Feliep Witt MD Unavailable [phone] Note from [facility],non-owned Affiliates and Associated Physician Practices is amultiple site organization consisting of ambulatory clinics and hospital sitesin [place], [place], [place] and [place]. This disclosure is being madepursuant to the Care Everywhere program and may not contain all information available regarding this patient. Last updated 18.[facility] Allergies No known active allergies Medications * Be aware that medications may not be up to date on this document. Alwaysverify current medications with the patient. * metoprolol succinate XL 24hr (TOPROL XL) 50 MG tablet Take 50 mg by mouth at bedtime. * calcium-vitamin D (OS-KEVAN 500 + D) 500-200 MG-UNIT tablet Take 1 Tab by mouth once daily. * atorvastatin (LIPITOR) 20 MG tablet Take 20 mg by mouth once daily * fluticasone propionate (FLONASE) 50 MCG/ACT nasal spray Mitchell 2 Sprays into each nostril once daily * Multiple Vitamins-Minerals (PROSIGHT) tablet Take 1 tablet by mouth once daily * ASPIRIN 81 PO * melatonin 10 MG capsule Take 10 mg by mouth at bedtime * HYDROcodone-acetaminophen (NORCO) 5-325 MG tablet(Started 12/02/2020) Take 1 (one) tablet by mouth every 6 hours as needed for Pain Active Problems Problem Noted Date Diagnosed Date Presence of left artificial knee joint 1 Junctional rhythm 11/19/2019 Arthritis of knee 08/27/2019 NERISSA-inhibitor cough 11/30/2018 PSVT (paroxysmal supraventricular tachycardia) 0 11/30/2018 Premature atrial contractions 09/05/2018 Mitral valve regurgitation 09/05/2018 Nonrheumatic aortic valve insufficiency 03/14/20 17 Rheumatoid arthritis involvi ng multiple sites with positive rheumatoid factor 10/18/2016 HTN (hypertension) 12/05/2013 Aneurysm of thoracic aorta 12/05/2013 Cystocele, midline 10/01/2009 Social History Tobacco Use Types Packs/Day Years Used Date Smoking Tobacco: Never Smokeless Tobacco: Never Alcohol Use Standard Drinks/Week Comments Yes 1 (1 standard drink = 0.6 oz pur e alcohol) with meals Sex and Gender Information Value Date Recorded Sex Assigned at Not on file Gender Identity Not on file Sexual Orientation Not on file Last Filed Vital Signs Vital Sign Reading Time Taken Comments Blood Pressure 143/55 12/02/2020 10:50 AM CDT Pulse 65 12/02/2020 10:50 AM CDT Temperature 36.2 ??C (97.2 ??F) 12/02/2020 10:50 AM C DT Respiratory Rate 19 12/02/2020 10:50 AM CDT Oxygen Saturation 100% 12/02/2020 10:50 AM CDT Inhaled Oxygen Concentration - - Weight 57.4 kg (126 lb 9.6 oz) 12/02/2020 7:34 A M CDT Height 160 cm (5' 3 ) 11/27/2020 10:05 AM CDT Body Mass Index 22.43 11/27/2020 10:05 AM CDT Medical Devices Implanted Type Area Help Desk Internship Device Identifier Shelf Expiration Date Model / Serial / Lot Cmnt Bone Djo Srg Cblt 40gm Hvisc Strl Implanted:Qty: 1 on 08/27/2019 by Efren Segovia MD at [facility] Left: Knee [employer] 05/02/2020 [id number] / / [id number] Tray Tib 71mm Kn Cocr I Beam Implanted:Qty: 1 on 08/27/2019 by Efren Segovia MD at [facility] Left: Knee Lv [employer] 07/08/2029 [id number] / / [id number] Cmpnt Ptlr 28mm 1 Pg Wire Ascnt Arcm Kn Implanted:Qty: 1 on 08/27/2019 by Efren Segovia MD at [facility] Left: Knee L[employer] 07/20/2024 [id number] / / [id number] Cmpnt Fem Kn Lt Cr Cmnt Prm Vngrd Intlk Implanted:Qty: 1 on 08/27/2019 by Efren Segovia MD at [facility] Left: Knee [employer] 06/07/2029 [id number] / / [id number] As Tibial Bearing Implanted:Qty: 1 on 08/27/2019 by Efren Segovia MD at [facility] Left: Knee [employer] 11/21/2023 [id number] / / [id number] Joint Toe Swnsn 0s Lat Mtp Sheela Ti Grmt Implanted:Qty: 1 on 12/02/2020 by Ankita Hargrove MD at [facility] Left: Foot [employer] 03/14/2027 [id number] / / [id number] Procedures * FL SANDRO SURGERY(Performed 12/02/2020) Performed for Pain * MS COR HLX VLGS RSC PRX PHLX BS(Performed 12/02/2020) Performed for Acquired hallux valgus of left foot * XR KNEE LEFT 3VW(Performed 07/10/2020) Performed for Aftercare following left knee joint replacement surgery * XR KNEE LEFT 3VW(Performed 11/20/2019) Performed for Aftercare following left knee joint replacement surgery * HGB HCT PANEL(Performed 08/29/2019) * HGB HCT PANEL(Performed 08/28/2019) * NEURAXIAL BLOCK(Performed 08/27/2019) * ARTHROPLASTY TOTAL KNEE(Performed 08/27/2019) * EKG 12-LEAD(Performed 08/09/2019) Performed for Pre-op evaluation * CULTURE MSSA/MRSA(Performed 08/09/2019) Performed for Pre-op evaluation * DERMATOPATHOLOGY(Performed 05/31/2018) * FL SANDRO SURGERY LESS 60 MIN(Performed 04/05/2017) Performed for Pain of foot, unspecified laterality * RESECTION METATARSAL(Performed 04/05/2017) Performed for Metatarsalgia of right foot, Acquired hammer toe of right foot, Acute foot pain, right * ECHOCARDIOGRAM 2D WITH DOPPLER(Performed 03/12/2016) Performed for Thoracic aortic aneurysm without rupture (HCC) * CARDIAC EKG ORDER(Performed 01/22/2016) * LAB RESULTS ORDER(Performed 01/22/2016) * XR FOOT LEFT 3VW OR MORE(Performed 01/21/2016) Performed for Status post left foot surgery * REMOVAL HARDWARE FOOT(Performed 01/21/2016) * PROCEDURE NOT LISTED(Performed 01/21/2016) * XR HAND BILAT 2VW(Performed 02/11/2015) Performed for Rheumatoid arthritis(714.0) (HCC) * LAB RESULTS ORDER(Performed 11/22/2014) * LAB RESULTS ORDER(Performed 08/08/2014) * XR CHEST 2VW(Performed 05/02/2014) Performed for Rheumatoid Arthritis (Hcc) * ECHOCARDIOGRAM 2D WITH DOPPLER(Performed 12/12/2013) Performed for Aneurysm of thoracic aorta (HCC), Aortic valve disorders * MRI CERVICAL SPINE WO CONTRAST(Performed 06/15/2013) Performed for Brachial Neuritis Or Radiculitis Nos, Abnormal x-ray * XR CERVICAL SPINE 4 OR 5VW(Performed 06/04/2013) Performed for Cervicalgia, Rheumatoid Arthritis (Hcc) * MAMMO BILAT SCREENING(Performed 05/17/2013) Performed for Other screening mammogram * CULTURE URINE(Performed 04/16/2013) * CULTURE URINE(Performed 04/03/2013) * XR CHEST 2VW(Performed 02/16/2013) Performed for Rheumatoid arthritis (HCC) * CULTURE URINE(Performed 12/28/2012) * CULTURE URINE(Performed 12/13/2012) * COLONOSCOPY SCREEN(Performed 10/20/2012) Performed for Family history of malignant neoplasm of gastrointestinal tract, Unspecified Constipation, Other symptoms involving digestive system * ENDOSCOPY, COLON, DIAGNOSTIC(Performed 10/20/2012) * VAS BILATERAL VENOUS DUPLEX LE(Performed 05/12/2012) Performed for Varicose veins of lower extremities with other complications * LAB RESULTS ORDER(Performed 04/14/2012) * MAMMO BILAT SCREENING(Performed 04/03/2012) Performed for Other screening mammogram * XR CHEST 2VW(Performed 11/08/2011) Performed for Hypertension, Effusion of joint, site unspecified * XR HAND BILAT 2VW(Performed 11/08/2011) Performed for Effusion of joint, site unspecified * VITAMIN D 25-HYDROXY(Performed 07/26/2011) * URINALYSIS REFLEX TO MICROSCOPIC NO CULTURE(Performed 07/26/2011) * CBC W AUTO DIFFERENTIAL(Performed 07/26/2011) * COMPREHENSIVE METABOLIC PANEL(Performed 07/26/2011) * LIPID PROFILE(Performed 07/26/2011) * MAMMO BILAT SCREENING(Performed 04/01/2011) Performed for Other screening mammogram * CARDIAC ECHOCARDIOGRAM COMPLETE ORDER(Performed 09/22/2010) * CARDIAC EKG ORDER(Performed 09/22/2010) * BASIC METABOLIC PANEL (CALCIUM TOTAL)(Performed 07/17/2010) * LIPID PROFILE(Performed 07/17/2010) * LIPID PROFILE(Performed 03/06/2010) * BASIC METABOLIC PANEL (CALCIUM TOTAL)(Performed 03/06/2010) * MAMMO BILAT SCREENING(Performed 03/06/2010) Performed for Other Screening Mammogram * CARDIAC RHYTHM STRIP ORDER(Performed 10/04/2009) * LAB RESULTS ORDER(Performed 10/04/2009) * PULSE OXIMETRY, CONTINUOUS(Performed 10/01/2009) * OXYGEN(Performed 10/01/2009) * HCG URINE QUALITATIVE(Performed 10/01/2009) Performed for Cystocele, Midline * URINALYSIS REFLEX TO MICROSCOPIC NO CULTURE(Performed 10/01/2009) Performed for Cystocele, Midline * ALT(Performed 08/12/2009) Performed for Hyperlipidemia Nec/Nos * AST BLOOD(Performed 08/12/2009) Performed for Hyperlipidemia Nec/Nos * LIPID PROFILE(Performed 08/12/2009) Performed for Hyperlipidemia Nec/Nos * CARDIAC EKG ORDER(Performed 08/12/2009) * CULTURE URINE COMPREHENSIVE(Performed 04/24/2009) * CULTURE URINE COMPREHENSIVE(Performed 03/13/2009) * MAMMO BILAT SCREENING(Performed 03/13/2009) Performed for Other Screening Mammogram * LIPID PROFILE(Performed 03/13/2009) Performed for Pure Hypercholesterolem * COMPREHENSIVE METABOLIC PANEL(Performed 03/13/2009) Performed for Benign Hypertension * LAB HISTORICAL RESULTS-ONBASE(Performed 03/11/2009) * LAB HISTORICAL RESULTS-ONBASE(Performed 03/11/2009) * CARDIAC STRESS TEST ORDER(Performed 07/02/2008) * URINALYSIS - POINT OF CARE (AMB) SLU(Performed 07/04/1998) * URINALYSIS - POINT OF CARE (AMB) SLU(Performed 07/04/1998) * URINALYSIS - POINT OF CARE (AMB) SLU(Performed 07/04/1998) Results * FL SANDRO SURGERY (12/02/2020 12:07 PM CDT) Anatomical Region Laterality Modality Radiographic Jaida ging 12/02/2020 12:2 4 PM CDT Narrative 12/02/2020 12:07 PM CDT FLUOROSCOPY: Less than 1 hour ??of fluoroscopy was utilized during a podiatric surgery. No radiologist was present. Please refer to surgical report for details. 4.05 seconds fluoroscopy were provided *Reading Radiologist: Gisell Daniels on 12/02/2020 at 12:24 PM Procedure Note Gisell Daniels MD - 12/02/2020 FLUOROSCOPY: Less than 1 hour of fluoroscopy was utilized during a podiatric surgery. No radiologist was present. Please refer to surgical report for details. 4.05 seconds fluoroscopy were provided *Reading Radiologist: Gisell Daniels on 12/02/2020 at 12:24 PM Ankita Hargrove MD FLUOROSCOPY ORDERABL ES * XR KNEE LEFT 3VW (07/10/2020 2:51 PM ACCELERATOR OPERATOR) Only the most recent of2 resultswithin the time period is included. Anatomical Region Laterality Modality Lower Extremity Computed Radiogr aphy Narrative 07/10/2020 2:53 PM ACCELERATOR OPERATOR Ynes Pineda RT(R) ? 07/10/2020 ??4:20 PM See progress notes for results Efren Segovia MD DIAGNOSTIC IMAGING O RDERABLES * (ABNORMAL) HGB HCT PANEL (08/29/2019 1:40 AM ACCELERATOR OPERATOR) Only the most recent of2 resultswithin the time period is included. Hemoglobin 10.8(L) 12.0 - 15.6 gm/dL 08/29/2019 1:51 AM ACCELERATOR OPERATOR [facility] Hematocrit 31.7(L) 35.9 - 45.5 % 08/29/2019 1:51 AM ACCELERATOR OPERATOR [facility] Blood BLOOD SPECIMEN / Unknown Venipuncture / Unknown 08/29/2019 1:40 AM ACCELERATOR OPERATOR 08/29/2019 1:44 AM ACCELERATOR OPERATOR Efren Segovia MD LAB - HEMATOLOGY ORD ERABLES [facility] [address] [place] [address] * Neuraxial Block (08/27/2019 7:32 AM ACCELERATOR OPERATOR) Narrative Charanjit Stevens APRN-LOG HOOKER - 08/27/2019 7:32 AM ACCELERATOR OPERATOR Charanjit Stevens APRN-LOG HOOKER ? 08/27/2019 ??7:33 AM Neuraxial Block Note ?? Pre-Procedure: ?? Procedure Name: ??Neuraxial Block Patient Location: ??OR Indications: ??surgical anesthesia Pre-Anesthetic Checklist: ??Patient identified, IV Checked, Risks and benefits discussed, Surgical consent verified, Monitors and equipment, Site examined, Pre-op evaluation done, Informed consent obtained, Questions answered/anesthesia questions answered and Allergies reviewed Anticoagulation/ Anti-thrombosis status confirmed? ??Yes Supplemental O2: ??room air Monitors: ??BP and continuous pluse ox Patient Condition: ??sedated, meaningful contact maintained throughout procedure Patient Sedated? ??Nursing sedation administration ? Sedation Type: ??mild ? Sedation Agents (manual): ??versed ?? fentanyl mL Procedure: ?? Block Type: ??Spinal Prep: ??Betadine Sterile Field: ??mask, cap/hat, sterile established and sterile gloves Approach: ??midline Skin was localized? ??Nursing documentation on MAR Skin localized with: ??Lidocaine 1% and 1 mL Spinal Block: ?? Needle Type: ??spinal needle Needle Gauge: ??22 Needle Length: ??90 mm Placement Site: ??L3-4 Number of Attempts: ??1 CSF: ??free flow, ?? aspiration before injection Local anesthetics used? ??Nursing documentation on the MAR Spinal Local Anesthetic: ? Bupivacaine: ??0.75% in dextrose 1.8 ??mL Degree of difficulty: ??none Procedure Tolerance: ??tolerated well ?? performed while the patient was sedated Sensory Level: ??T8 Motor Blockade: ??Yes Position post procedure: ??supine Vital Signs: ??Vital signs monitored and stable throughout. ??See anesthesia record for details. Start Time: ??08/27/2019 7:05 AM End Time: ??08/27/2019 7:10 AM Total Time: ??5 Staff: ?? Anesthesia Provider: ??Charanjit Stevens, SIDNEY-LOG HOOKER ?? - ?? performed the procedure David Stein MD GENERAL ANESTHESIA O RDERABLES * EKG 12-LEAD (08/09/2019 3:34 PM ACCELERATOR OPERATOR) Ventricular Rate 59 BPM [facility] Atrial Rate 59 BPM [facility] P-R Interval 140 ms [facility] QRS Duration ms 88 ms [facility] Q-T Interval ms 406 ms [facility] QTC Calculation (Bezet) 401 ms [facility] Calculated P [place] 65 degrees [facility] Calculated R [place] 27 degrees [facility] Calculated T [place] 81 degrees [facility] Interpretation EKG Sinus bradycardia with marked sinus arrhythmia Minimal voltage criteria for LVH, may be normal variant Nonspecific ST and T wave abnormality Abnormal ECG Confirmed by KENTON HARP, [facility] ([id number]) on 08/10/2019 10:26:19 AM [facility] MUSE 08/09/2019 3:34 PM ACCELERATOR OPERATOR 08/10/2019 10:26 AM ACCELERATOR OPERATOR Kameron Sun DO ECG ORDERABLES [facility] * CULTURE MSSA/MRSA (08/09/2019 2:51 PM ACCELERATOR OPERATOR) Culture Negative for Staphylococcus aureus (MRSA/MSSA) 08/11/2019 7:25 AM ACCELERATOR OPERATOR [facility] Microbiology SPECIMEN FROM NASAL FOSSAE / Unknown 08/09/2019 2:51 PM ACCELERATOR OPERATOR 08/09/2019 2:51 PM ACCELERATOR OPERATOR Kristyn Clay LIVE TRUCK TECHNICIAN-RADIOCHEMICAL TECHNICIAN LAB - MICR OBIOLOGY ORDERABLES [facility] [address] [place] [address], [facility] [phone] * DERMATOPATHOLOGY (05/31/2018 12:00 AM ACCELERATOR OPERATOR) Case Report Dermatopathology Report ? Case: [id number] ? Authorizing Provider: ??Bib Mckinnon MD ?Collected: ? 05/31/2018 12:00 AM ? Pathologist: ? Troy Bailey MD ? Received: ?06/01/2018 01:54 PM ? Specimen: ?Skin, left lateral lower buttock ? 8 2:[address] [facility] DERMATOPATHOLOGY [facility]ORATORY Final Diagnosis Specimen A. SKIN, left lateral lower buttock: EPIDERMOID CYST (L72.0) 8 2:[address] [facility] DERMATOPATHOLOGY LABORATORY Clinical History R/O EIC. 8 2:[address] [facility] DERMATOPATHOLOGY LABORATORY Gross Description Specimen A: Received is one formalin filled container labeled with the patients name and designated. The specimen consists of a [id number] excision of skin. The specimen is serially sectioned and a exhibit display representative section is submitted in cassette 1. Jar 1. 8 2:[address] [facility] DERMATOPATHOLOGY LABORATORY Microscopic Description Specimen A. SKIN, left lateral lower buttock: Within the dermis, there is a space lined by epithelium that resembles normal epidermis and the infundibular portion of the hair follicle. 8 2:[address] [facility] DERMATOPATHOLOGY LABORATORY Disclaimer An external and internal positive and negative controls are appropriate for the histochemical, immunohistochemical and immunofluorescence stain(s) in this case (if any), except where stated explicitly. The performance characteristics of the stain(s) cited in this report were developed and its performance characteristic determined by the Dermatopathology Laboratory at [facility]. These tests need not be, and therefore are not, approved by the [place] Food and Drug Administration. The tests are used for clinical purposes. Billing Codes Specimen Charges Stain Charges 38132 1 8 2:[address] [facility] DERMATOPATHOLOGY LABORATORY Embedded Images 8 2:[address] [facility] DERMATOPATHOLOGY LABORATORY Pathology/Cytolog y TISSUE SPECIMEN FROM SKIN / Unknown 05/31/2018 06/01/2018 1:54 PM ACCELERATOR OPERATOR Bib Mckinnon MD LAB - PATHOLOGY/CYTO LOGY ORDERABLES DERMATOPATHOLOGY LABORATORY [facility] - Department of Dermatology [address] [place] [address] 5th Floor Lab [address] [phone] * FL SANDRO SURGERY LESS 60 MIN (04/05/2017 11:45 AM CDT) Anatomical Region Laterality Modality Radiographic Jaida ging 04/05/2017 11:4 8 AM CDT Narrative 04/05/2017 11:48 AM CDT FLUOROSCOPY: Less than 1 hour ??of fluoroscopy was utilized during a podiatric surgery. No radiologist was present. Please refer to surgical report for details. 1.56 seconds fluoroscopy were provided Procedure Note Gisell Daniels MD - 04/05/2017 FLUOROSCOPY: Less than 1 hour of fluoroscopy was utilized during a podiatric surgery. No radiologist was present. Please refer to surgical report for details. 1.56 seconds fluoroscopy were provided Ankita Hargrove MD FLUOROSCOPY ORDERABL ES * ECHOCARDIOGRAM 2D WITH DOPPLER (03/12/2016 10:05 AM CDT) Only the most recent of2 resultswithin the time period is included. 03/12/2016 10:0 5 AM CDT Narrative [facility] - 03/12/2016 5:13 PM CDT [facility] [place] at [address] [place] [address] Transthoracic Echocardiogram 2D, M-mode, Doppler, and Color Doppler Patient: HUYEN MANNING MR number: [id number] Height: 63 in Weight: 126.7 lb BSA: 1.59 m?? Study date: 12-Mar-2016 : 1940 Age: 75 years Gender: Female Race: Referring Physician: ??Dennys Murry MD Egg Worker: ??Genia Garcia [facility] Reading Physician: ??Marek Boateng MD Summary: - ??Clinical question: - ??Follow up aortic aneurysm. - ??History: - ??Aneurysm throacic AO(3.9cm) - ??Left ventricle: - ??Systolic function was normal. Ejection fraction was estimated to be 64 %. - ??There were no regional wall motion abnormalities. - ??Wall thickness was mildly increased. - ??Aortic valve: - ??There was moderate regurgitation. - ??Mitral valve: - ??There was mild annular calcification. - ??There was mild to moderate regurgitation. - ??Left atrium: - ??The atrium was mildly dilated. - ??Pulmonic valve: - ??There was moderate regurgitation. Indications: Follow up aortic aneurysm. History: Prior history: Aneurysm throacic AO(3.9cm) History of moderate regurgitation of the aortic valve. Procedure: [facility] The transthoracic approach was used. The study included complete 2D imaging, M-mode, complete spectral Doppler, and color Doppler. Image quality was adequate. Left ventricle: Size was normal. Systolic function was normal. Ejection fraction was estimated to be 64 %. There were no regional wall motion abnormalities. Wall thickness was mildly increased. Doppler: Left ventricular diastolic function parameters were normal. Aortic valve: The valve was trileaflet. Leaflets exhibited normal thickness and normal cuspal separation. Doppler: There was no stenosis. There was moderate regurgitation. Aorta: The root exhibited upper limit of normal size at 3.5 cm diameter Mitral valve: There was mild annular calcification. Valve structure was normal. There was normal leaflet separation. Doppler: The transmitral velocity was within the normal range. There was no evidence for stenosis. There was mild to moderate regurgitation. Left atrium: The atrium was mildly dilated. Right ventricle: The size was normal. Systolic function was normal. Wall thickness was normal. Doppler: Systolic pressure was within the normal range. Estimated peak pressure was 25 mmHg. Pulmonic valve: Leaflets exhibited normal thickness, no calcification, and normal cuspal separation. Doppler: There was moderate regurgitation. Pulmonary artery: The size was normal. Doppler: Systolic pressure was within the normal range. Tricuspid valve: The valve structure was normal. There was normal leaflet separation. Doppler: The transtricuspid velocity was within the normal range. There was no evidence for tricuspid stenosis. There was trivial regurgitation. Right atrium: Size was normal. Systemic veins: IVC: The inferior vena cava was normal in size. Pericardium: The pericardium was normal in appearance. Measurement tables 2D measurements Systemic veins ?? (Reference normals) Prox IVC diam ?? 19 mm ?? (12) System measurement tables 2D Ao Diam: 3.9 cm LVOT Diam: 2 cm LA Diam: 4 cm LAEDV Index (A-L): 32.8 ml/m2 LAEDV(A-L): 52.5 ml IVSd: 1.4 cm LVIDd: 4.3 cm LVIDs: 2.9 cm LVPWd: 1.2 cm CW AR PHT: 793.1 ms AR Vmax: 4.5 m/s AV VTI: 30.8 cm AV Vmax: 1.2 m/s AV Vmean: 1 m/s AV maxP.9 mmHg AV meanP mmHg MM TAPSE: 2.7 cm PW DAVID (VTI): 2.4 cm2 DAVID Vmax: 2.7 cm2 LVOT VTI: 23.5 cm LVOT Vmax: 1 m/s LVOT Vmean: 0.7 m/s LVOT maxP.1 mmHg LVOT meanP.9 mmHg MV E/A Ratio: 1.5 MV PHT: 40.4 ms MV VTI: 20.7 cm MV Vmax: 0.8 m/s MV Vmean: 0.3 m/s MV maxP.6 mmHg MV meanP.5 mmHg MVA By PHT: 5.5 cm2 LATERAL E': 0.1 m/s LATERAL E/E': 10.8 SEPTAL E': 0.1 m/s SEPTAL E/E': 7.6 Prepared and signed by Marek Boateng MD Signed 12-Mar-2016 17:12:56 Procedure Note Marek Boaetng MD - 03/12/2016 [facility] [place] at [place] [address] [facility] [address] [place] [address] Transthoracic Echocardiogram 2D, M-mode, Doppler, and Color Doppler Patient: HUYEN MANNING MR number: [id number] Height: 63 in Weight: 126.7 lb BSA: 1.59 m?? Study date: 12-Mar-2016 : 1940 Age: 75 years Gender: Female Race: Referring Physician: Dennys Murry MD Egg Worker: Genia Garcia RDCS Reading Physician: Marek Boateng MD Summary: - Clinical question: - Follow up aortic aneurysm. - History: - Aneurysm throacic AO(3.9cm) - Left ventricle: - Systolic function was normal. Ejection fraction was estimated to be 64 %. - There were no regional wall motion abnormalities. - Wall thickness was mildly increased. - Aortic valve: - There was moderate regurgitation. - Mitral valve: - There was mild annular calcification. - There was mild to moderate regurgitation. - Left atrium: - The atrium was mildly dilated. - Pulmonic valve: - There was moderate regurgitation. Indications: Follow up aortic aneurysm. History: Prior history: Aneurysm throacic AO(3.9cm) History of moderate regurgitation of the aortic valve. Procedure: [facility] The transthoracic approach was used. The study included complete 2D imaging, M-mode, complete spectral Doppler, and color Doppler. Image quality was adequate. Left ventricle: Size was normal. Systolic function was normal. Ejection fraction was estimated to be 64 %. There were no regional wall motion abnormalities. Wall thickness was mildly increased. Doppler: Left ventricular diastolic function parameters were normal. Aortic valve: The valve was trileaflet. Leaflets exhibited normal thickness and normal cuspal separation. Doppler: There was no stenosis. There was moderate regurgitation. Aorta: The root exhibited upper limit of normal size at 3.5 cm diameter Mitral valve: There was mild annular calcification. Valve structure was normal. There was normal leaflet separation. Doppler: The transmitral velocity was within the normal range. There was no evidence for stenosis. There was mild to moderate regurgitation. Left atrium: The atrium was mildly dilated. Right ventricle: The size was normal. Systolic function was normal. Wall thickness was normal. Doppler: Systolic pressure was within the normal range. Estimated peak pressure was 25 mmHg. Pulmonic valve: Leaflets exhibited normal thickness, no calcification, and normal cuspal separation. Doppler: There was moderate regurgitation. Pulmonary artery: The size was normal. Doppler: Systolic pressure was within the normal range. Tricuspid valve: The valve structure was normal. There was normal leaflet separation. Doppler: The transtricuspid velocity was within the normal range. There was no evidence for tricuspid stenosis. There was trivial regurgitation. Right atrium: Size was normal. Systemic veins: IVC: The inferior vena cava was normal in size. Pericardium: The pericardium was normal in appearance. Measurement tables 2D measurements Systemic veins (Reference normals) Prox IVC diam 19 mm (12-23) System measurement tables 2D Ao Diam: 3.9 cm LVOT Diam: 2 cm LA Diam: 4 cm LAEDV Index (A-L): 32.8 ml/m2 LAEDV(A-L): 52.5 ml IVSd: 1.4 cm LVIDd: 4.3 cm LVIDs: 2.9 cm LVPWd: 1.2 cm CW AR PHT: 793.1 ms AR Vmax: 4.5 m/s AV VTI: 30.8 cm AV Vmax: 1.2 m/s AV Vmean: 1 m/s AV maxP.9 mmHg AV meanP mmHg MM TAPSE: 2.7 cm PW DAVID (VTI): 2.4 cm2 DAVID Vmax: 2.7 cm2 LVOT VTI: 23.5 cm LVOT Vmax: 1 m/s LVOT Vmean: 0.7 m/s LVOT maxP.1 mmHg LVOT meanP.9 mmHg MV E/A Ratio: 1.5 MV PHT: 40.4 ms MV VTI: 20.7 cm MV Vmax: 0.8 m/s MV Vmean: 0.3 m/s MV maxP.6 mmHg MV meanP.5 mmHg MVA By PHT: 5.5 cm2 LATERAL E': 0.1 m/s LATERAL E/E': 10.8 SEPTAL E': 0.1 m/s SEPTAL E/E': 7.6 Prepared and signed by Marek Boateng MD Signed 12-Mar-2016 17:12:56 Dennys Murry MD ECHO ORDERABLES [facility] [address] [place] [address] * CARDIAC EKG ORDER (01/22/2016 9:55 PM CDT) Only the most recent of3 resultswithin the time period is included. Narrative 01/22/2016 9:55 PM CDT Ordered by an unspecified provider. Scanned Document CARDIAC SERVICES ORD ERABLES * LAB RESULTS ORDER (01/22/2016 9:52 PM CDT) Only the most recent of5 resultswithin the time period is included. Narrative 01/22/2016 9:52 PM CDT Ordered by an unspecified provider. Scanned Document LAB - THERAPEUTIC DR UG MONITORING ORDERABLES * XR FOOT 3+ VW LEFT (01/21/2016 11:04 AM CDT) Anatomical Region Laterality Modality Ankle / Foot Radiographic Jaida ging 01/21/2016 1:25 PM CDT Narrative 01/21/2016 2:16 PM CDT LEFT FOOT THREE VIEWS Indication: Left foot pain, postop. Findings: Three views of the left foot without prior show postoperative change and absence of the heads of the first through fifth metatarsals as well as base of the first proximal phalanx. Dorsal soft tissue swelling is present. Followup exam should be performed as needed. Edited by Andreea Pemberton on 01/21/2016 2:03 PM Procedure Note Omkar Hernandez MD - 01/21/2016 LEFT FOOT THREE VIEWS Indication: Left foot pain, postop. Findings: Three views of the left foot without prior show postoperative change and absence of the heads of the first through fifth metatarsals as well as base of the first proximal phalanx. Dorsal soft tissue swelling is present. Followup exam should be performed as needed. Edited by Andreea Pemberton on 01/21/2016 2:03 PM Layne Noriega DPM DIAGNOSTIC IMAGING O RDERABLES * XR HANDS BILATERAL 2 VIEWS (02/11/2015 2:22 PM CDT) Only the most recent of2 resultswithin the time period is included. Anatomical Region Laterality Modality Wrist / Hand, Upper Extremity Ra diographic Imaging 02/11/2015 7:43 PM CDT Impressions 02/11/2015 7:47 PM CDT No substantial interval progression of arthritis compared with 2011. Narrative 02/11/2015 7:47 PM CDT BILATERAL HANDS, TWO VIEWS OF EACH HISTORY: Rheumatoid arthritis. COMPARISON: 11/08/2011. FINDINGS: The appearance of both hands is similar to 2012, with joint space narrowing predominantly involving the long and ring finger proximal interphalangeal joints and second and third metacarpophalangeal joints. ??Degenerative changes at the first carpometacarpal joints bilaterally are also unchanged. ??Cystic lucencies within the distal ulna bilaterally are unchanged. Procedure Note Anna Talley MD - 02/11/2015 BILATERAL HANDS, TWO VIEWS OF EACH HISTORY: Rheumatoid arthritis. COMPARISON: 11/08/2011. FINDINGS: The appearance of both hands is similar to 2012, with joint space narrowing predominantly involving the long and ring finger proximal interphalangeal joints and second and third metacarpophalangeal joints. Degenerative changes at the first carpometacarpal joints bilaterally are also unchanged. Cystic lucencies within the distal ulna bilaterally are unchanged. IMPRESSION No substantial interval progression of arthritis compared with 2011. Sue HAYS DIAGNOSTIC IMAGI NG ORDERABLES * XR CHEST PA AND LATERAL ROUTINE CHEST (05/02/2014 12:36 PM CDT) Only the most recent of3 resultswithin the time period is included. Anatomical Region Laterality Modality Chest Radiographic Jaida ging 05/02/2014 1:00 PM CDT Impressions 05/02/2014 2:01 PM CDT Clear lungs. Edited by Candi Ward on 05/02/2014 1:21 PM Narrative 05/02/2014 2:01 PM CDT Chest x-ray 2 views. HISTORY: Rheumatoid arthritis. Two views of the chest are compared to a prior exam of 2012. Heart size is stable. Lungs are clear. Procedure Note Efren Yang MD - 05/02/2014 Chest x-ray 2 views. HISTORY: Rheumatoid arthritis. Two views of the chest are compared to a prior exam of 2012. Heart size is stable. Lungs are clear. IMPRESSION Clear lungs. Edited by Candi Ward on 05/02/2014 1:21 PM Manolo Andrea III, MD DIAGNOSTIC IMAGING O RDERABLES * MRI SPINE CERVICAL NON CONTRAST (06/15/2013 9:57 AM ACCELERATOR OPERATOR) Anatomical Region Laterality Modality Pelvis Magnetic Resonan ce Angiography 06/15/2013 10:0 9 AM ACCELERATOR OPERATOR Impressions 06/15/2013 11:06 AM ACCELERATOR OPERATOR Spondylosis. Edited by Lalia Carrizales on 06/15/2013 10:52 AM Narrative 06/15/2013 11:06 AM ACCELERATOR OPERATOR MRI CERVICAL SPINE WITHOUT CONTRAST. HISTORY: Cervical radiculopathy, abnormal radiograph. Images are provided in sagittal and axial planes using T1 and T2-weighted sequences. Vertebral heights are normal. There is interspace height loss notably at C5-C6 and C6-C7. There is slight anterolisthesis of C4 on C5 and slight retrolisthesis of C5 on C6. There is no pathologic marrow replacement. At C2-C3, there is a mild disc bulge. AP diameter of the dural sac is 12 mm. There is no lateral recess or neural foraminal narrowing. At C3-C4, there is a broad-based disc bulge. AP diameter of the dural sac is 10 mm. There is slight lateral recess narrowing but no neural foraminal narrowing. At C4-C5, there is a broad-based disc bulge. AP diameter of the dural sac is 10 mm. There is lateral recess narrowing and neural foraminal narrowing seen bilaterally. At C5-C6, there is disc spur complex present with the AP diameter of the dural sac estimated at 11 mm. There is slight lateral recess and neural foraminal narrowing seen, greater on the right. At C6-C7, there is a mild disc bulge. AP diameter of the dural sac is 12 mm. There is slight lateral recess narrowing bilaterally. Below this level, the visible spinal canal is widely patent. Spinal cord shows no evidence for myelomalacia. Procedure Note Efren Yang MD - 06/15/2013 MRI CERVICAL SPINE WITHOUT CONTRAST. HISTORY: Cervical radiculopathy, abnormal radiograph. Images are provided in sagittal and axial planes using T1 and T2-weighted sequences. Vertebral heights are normal. There is interspace height loss notably at C5-C6 and C6-C7. There is slight anterolisthesis of C4 on C5 and slight retrolisthesis of C5 on C6. There is no pathologic marrow replacement. At C2-C3, there is a mild disc bulge. AP diameter of the dural sac is 12 mm. There is no lateral recess or neural foraminal narrowing. At C3-C4, there is a broad-based disc bulge. AP diameter of the dural sac is 10 mm. There is slight lateral recess narrowing but no neural foraminal narrowing. At C4-C5, there is a broad-based disc bulge. AP diameter of the dural sac is 10 mm. There is lateral recess narrowing and neural foraminal narrowing seen bilaterally. At C5-C6, there is disc spur complex present with the AP diameter of the dural sac estimated at 11 mm. There is slight lateral recess and neural foraminal narrowing seen, greater on the right. At C6-C7, there is a mild disc bulge. AP diameter of the dural sac is 12 mm. There is slight lateral recess narrowing bilaterally. Below this level, the visible spinal canal is widely patent. Spinal cord shows no evidence for myelomalacia. IMPRESSION Spondylosis. Edited by Laila Carrizales on 06/15/2013 10:52 AM Woodrow Lunsford MD MR ORDERABLES * XR CERVICAL SPINE MIN 4+VW ROUTINE (06/04/2013 3:00 PM ACCELERATOR OPERATOR) Anatomical Region Laterality Modality Spine Radiographic Jaida ging 06/04/2013 3:11 PM ACCELERATOR OPERATOR Narrative 06/04/2013 3:40 PM ACCELERATOR OPERATOR CERVICAL SPINE, SIX VIEWS INCLUDING OBLIQUE VIEWS FINDINGS: There is degenerative change notably at C5-C6 and C6-C7. Mild anterolisthesis of C4-C5 is present which may be degenerative. Otherwise, there is no evidence of fracture or subluxation. The lateral masses and facets appear normally aligned. There is posterior osteophytic spurring with narrowing of the neural foramina bilaterally at C3-C4 and C5-C6. The prevertebral soft tissues are normal. DIAGNOSES: Degenerative change. There is anterolisthesis at C4-C5. Further evaluation with CT or MRI is recommended if clinically indicated. Edited by Marlen Richter on 06/04/2013 3:21 PM Procedure Note Robb Contreras MD - 06/04/2013 CERVICAL SPINE, SIX VIEWS INCLUDING OBLIQUE VIEWS FINDINGS: There is degenerative change notably at C5-C6 and C6-C7. Mild anterolisthesis of C4-C5 is present which may be degenerative. Otherwise, there is no evidence of fracture or subluxation. The lateral masses and facets appear normally aligned. There is posterior osteophytic spurring with narrowing of the neural foramina bilaterally at C3-C4 and C5-C6. The prevertebral soft tissues are normal. DIAGNOSES: Degenerative change. There is anterolisthesis at C4-C5. Further evaluation with CT or MRI is recommended if clinically indicated. Edited by Marlen Richter on 06/04/2013 3:21 PM Woodrow Lunsford MD DIAGNOSTIC IMAGING ORDERABLES * MINA SCREENING DIGITAL IMAGE BILATERAL [id number] (05/17/2013 12:30 PM ACCELERATOR OPERATOR) Only the most recent of5 resultswithin the time period is included. Anatomical Region Laterality Modality Breast Bilateral Mammography 05/17/2013 1:03 PM ACCELERATOR OPERATOR Narrative 05/17/2013 1:04 PM ACCELERATOR OPERATOR EXAMINATION: Digital screening mammogram on 05/17/2013. PRIOR: 04/03/2012. FINDINGS: Computer assisted detection was utilized. ??The tissue density is average with scattered fibroglandular densities. ??No suspicious abnormality seen. ??There is no significant new finding since the prior mammogram. ASSESSMENT: BIRADS Category 1: ??Negative mammogram. RECOMMENDATION: Follow up in one year. [facility] utilizes [employer] as a reminder system to notify patients of their next recommended mammogram. Procedure Note Nae Pryor MD - 05/17/2013 EXAMINATION: Digital screening mammogram on 05/17/2013. PRIOR: 04/03/2012. FINDINGS: Computer assisted detection was utilized. The tissue density is average with scattered fibroglandular densities. No suspicious abnormality seen. There is no significant new finding since the prior mammogram. ASSESSMENT: BIRADS Category 1: Negative mammogram. RECOMMENDATION: Follow up in one year. [facility] utilizes [employer] as a reminder system to notify patients of their next recommended mammogram. Woodrow Lunsford MD MAMMO ORDERABLES * CULTURE URINE (04/16/2013 3:39 PM CDT) Only the most recent of4 resultswithin the time period is included. Urine Culture Routine SEE NOTE [facility] ([facility]) Comment: ??CULTURE, URINE, ROUTINE ?MICRO NUMBER: ?[id number] ??TEST STATUS: ? FINAL ??SPECIMEN SOURCE: ?? URINE ??SPECIMEN QUALITY: ??ADEQUATE ??RESULT: ?Three or more organisms present, each greater ? than 10,000 cu/mL. May represent normal devora ? contamination from external genitalia. No further ? testing is required. REPORT COMMENT: SPECIMEN TYPE->URINE Test Performed at: [email or web address] ??[id number] EFREN MATHIS DO, MPH Urine specimen (specimen) URINE SPECIMEN OBTAINED BY CLEAN CATCH PROCEDURE / Unknown 04/16/2013 3:39 PM CDT 04/16/2013 3:41 PM CDT Narrative [facility] ([facility]) - 04/17/2013 9:00 PM CDT Specimen Type->Urine Michelle [facility]OMLIN[facility] - MICRO BIOLOGY ORDERABLES [facility] ([facility]) * ENDOSCOPY, COLON, DIAGNOSTIC (10/20/2012 11:45 AM CDT) Narrative [facility] - 10/20/2012 11:45 AM CDT Procedure Note Woodrow Lunsford MD - 10/20/2012 11:45 AM CDT Woodrow Lunsford MD GI PROCEDURE ORDER NA Performing Organization Address City/[facility]/ZIP Co de Phone Number [facility] * VAS BILAT LE VENOUS DUPLEX (05/12/2012 12:25 PM ACCELERATOR OPERATOR) Anatomical Region Laterality Modality Ultrasound 05/12/2012 9:46 AM ACCELERATOR OPERATOR Narrative Transcriptions Document, Scanned - 05/13/2012 6:15 PM CST Charles Grande MD VASCULAR LAB ORDERA BLES * (ABNORMAL) URINALYSIS ROUTINE AUTO (07/26/2011 9:30 AM ACCELERATOR OPERATOR) Only the most recent of2 resultswithin the time period is included. Source Clean Catch [facility] Color UA Yellow [facility] Character UA Hazy [facility] Glucose UA NEGATIVE NEGATIVE mg/dl [facility] Bilirubin UA NEGATIVE NEGATIVE [facility] Ketone UA NEGATIVE NEGATIVE mg/dl [facility] Specific [place] UA 1.015 1.003 - 1.030 [facility] Blood UA SMALL(H) NEGATIVE [facility] pH UA 7.0 5.0 - 9.0 [facility] Protein UA NEGATIVE NEGATIVE-TR NERISSA mg/dl [facility] Urobilinogen UA 0.2 0.2 - 1.0 Luis Units/dl [facility] Nitrite UA POSITIVE(H) NEGATIVE [facility] Leukocyte UA MODERATE(H) NEGATIVE [facility] WBC UA 15-25(H) 0 - 2 HPF [facility] RBC UA 1-3 None Seen HPF [facility] Epithelial Cell UA 2-3 Squamous None Seen HPF [facility] Mucus UA Few [facility] Bacteria UA Moderate(H) None Seen [facility] URINE SPECIMEN OBTAINED BY CLEAN CATCH PROCEDURE / Unknown 07/26/2011 9:30 AM ACCELERATOR OPERATOR 07/26/2011 10:54 AM ACCELERATOR OPERATOR Woodrow Lunsford MD LAB - URINALYSIS O RDERABLES Performing Organization Address [facility] Co de Phone Number [facility] [address] [place] [phone] * VITAMIN D 25-HYDROXY (07/26/2011 9:30 AM ACCELERATOR OPERATOR) Vitamin D, 25 Hydroxy 34.80 30 - 100 ng/ml [facility] BLOOD SPECIMEN / Unknown 07/26/2011 9:30 AM ACCELERATOR OPERATOR 07/26/2011 10:54 AM ACCELERATOR OPERATOR Woodrow Lunsford MD LAB - CHEMISTRY OR DERABLES Performing Organization Address [facility] de Phone Number [facility] [address] [place] [phone] * (ABNORMAL) CBC W AUTO DIFFERENTIAL (07/26/2011 9:30 AM ACCELERATOR OPERATOR) Pathologist [facility] WBC 6.3 4.0 - 10.0 K/CUMM [facility] RBC 4.16 3.80 - 5.80 M/CUMM [facility] Hemoglobin 12.9 12.0 - 16.0 gm/dL [facility] Hematocrit 37.8 37.0 - 47.0 % [facility] MCV 90.9 80.0 - 100.0 fl [facility] MCH 31.0 26.0 - 34.0 pg [facility] MCHC 34.1 31.0 - 37.0 gm/dL [facility] Platelet Count 172 150 - 400 K/CUMM [facility] RDW 13.0 11.5 - 14.5 % [facility] Granulocytes % 73.8(H) 50 - 70 % [facility] Lymphocytes % 18.8(L) 20 - 40 % [facility] Monocytes % 6.0 0 - 12 % [facility] Eosinophils % 0.6 0 - 5 % [facility] Basophils % 0.6 0 - 2 % [facility] Granulocytes Absolute 4.67 2.00 - 7.00 x1000/cmm [facility] Lymphocytes Absolute 1.19 0.80 - 4.00 x1000/cmm [facility] Monocytes Absolute 0.38 0.00 - 1.20 x1000/cmm [facility] Eosinophils Absolute 0.04 0.00 - 0.50 x1000/cmm [facility] Basophils Absolute 0.04 0.00 - 0.20 x1000/cmm [facility] BLOOD SPECIMEN / Unknown 07/26/2011 9:30 AM ACCELERATOR OPERATOR 07/26/2011 10:54 AM ACCELERATOR OPERATOR Woodrow Lunsford MD LAB - HEMATOLOGY O RDERABLES Performing Organization Address City/State/[facility] Co de Phone Number [facility] [address] [place] [address] * COMPREHENSIVE METABOLIC PANEL (07/26/2011 9:30 AM ACCELERATOR OPERATOR) Only the most recent of2 resultswithin the time period is included. Sodium 143 136 - 145 mmol/L [facility] Potassium 3.9 3.5 - 5.1 mmol/L [facility] Chloride 107 98 - 107 mmol/L [facility] BUN 21 7 - 21.0 mg/dl [facility] Creatinine 0.72 0.5 - 1.3 mg/dl [facility] Glucose 87 65 - 105 mg/dl [facility] Calcium 9.1 8.5 - 10.1 mg/dl [facility] Alkaline Phosphatase 59 38 - 126 U/L [facility] AST 20 5.0 - 40 U/L [facility] Bilirubin Total 0.5 0.2 - 1.0 mg/dl [facility] Protein Total 7.1 6.4 - 8.2 gm/dl [facility] Albumin 3.9 3.4 - 5.0 gm/dl [facility] CO2 29 22 - 30 mmol/L [facility] ALT 30 12.0 - 78.0 U/L [facility] eGFR by MDRD >60 Not applicable >70 yrs old mL/min/1.73m2 [facility] Comment eGFR [facility] Comment: ? The eGFR does not apply to patients who are younger than ? 18 or older than 70. BLOOD SPECIMEN / Unknown 07/26/2011 9:30 AM ACCELERATOR OPERATOR 07/26/2011 10:54 AM ACCELERATOR OPERATOR Woodrow Lunsford MD LAB - CHEMISTRY OR DERABLES [facility] [address] [place] [address] * (ABNORMAL) LIPID PROFILE (07/26/2011 9:30 AM ACCELERATOR OPERATOR) Only the most recent of5 resultswithin the time period is included. Cholesterol 195 <200 mg/dl [facility] Triglycerides 43 <150 mg/dl [facility] HDL Cholesterol 70 >=40 mg/dl [facility] VLDL Calculated 9 <=30 mg/dl [facility] LDL Calculated 116(H) <100 mg/dl [facility] Cholesterol Risk Factor 2.79 <4.45 [facility] Comment Lipid [facility] Comment: . . ? Normal values based on [place] [employer] guidelines. ? LIPID PROFILE GUIDELINES ? Total Cholesterol ?Category ?-------- ? Less than 200 mg/dl ?Desirable level that puts you at lower ?risk for heart disease. ??A cholesterol ?level of 200 mg/dl or greater increases ?your risk. ? 200 to 239 mg/dl ? Borderline high ? 240 mg/dl and above ?High blood cholesterol. ??A person with ?this level has more than twice the risk ?of heart disease compared to someone ?whose cholesterol is below 200 mg/dl. ? HDL Cholesterol ?Category ?-------- ? Less than 40 mg/dl ? Low HDL cholesterol. ??A major risk ?factor for heart disease. ? 40 to 59 mg/dl ? Borderline low. ? 60 mg/dl and above ? High HDL cholesterol. ??An HDL of 60 ?and above is considered protective ?against heart disease. ? LDL Cholesterol ?Category ?-------- ? Less than 100 mg/dl ?Optimal ? 100 to 129 mg/dl ? Near or above optimal ? 130 to 159 mg/dl ? Borderline high ? 160 to 189 mg/dl ? High ? 190 mg/dl and above ?Very high ? Triglyceride ? Category ? -------- ? Less than 150 mg/dl ?Normal ? 150 to 199 mg/dl ? Borderline high ? 200 to 499 mg/dl ? High ? 500 mg/dl and above ?Very high BLOOD SPECIMEN / Unknown 07/26/2011 9:30 AM ACCELERATOR OPERATOR 07/26/2011 10:54 AM ACCELERATOR OPERATOR Woodrow Lunsford MD LAB - CHEMISTRY OR DERABLES Performing Organization Address City/State/[facility] Co de Phone Number [facility] [address] [place] [address] * CARDIAC ECHOCARDIOGRAM COMPLETE ORDER (09/22/2010) Provider Unknown ECHO ORDERABLES * (ABNORMAL) BASIC METABOLIC PANEL (CALCIUM TOTAL) (07/17/2010 9:00 AM ACCELERATOR OPERATOR) Only the most recent of2 resultswithin the time period is included. Sodium 136(L) 137 - 145 mmol/L [facility] Potassium 3.5(L) 3.6 - 5.0 mmol/L [facility] Chloride 97(L) 98 - 107 mmol/L [facility] BUN 19(H) 7 - 17 mg/dl [facility] Creatinine 0.95 0.52 - 1.04 mg/dl [facility] Glucose 94 65 - 105 mg/dl [facility] CO2 31(H) 22 - 30 mmol/L [facility] Calcium 9.6 8.4 - 10.2 mg/dl [facility] eGFR by MDRD 58(L) >60 mL/min/1.7 3m2 [facility] Comment eGFR [facility] Comment: ? The eGFR does not apply to patients who are younger than ? 18 or older than 70. BLOOD SPECIMEN / Unknown 07/17/2010 9:00 AM ACCELERATOR OPERATOR 07/17/2010 11:18 AM ACCELERATOR OPERATOR Woodrow Lunsford MD LAB - CHEMISTRY OR DERABLES Performing Organization Address [facility] de Phone Number [facility] [address] [place] [address] * CARDIAC RHYTHM STRIP ORDER (10/04/2009 10:10 AM CDT) Narrative 10/04/2009 10:10 AM CDT Ordered by an unspecified provider. Transcriptions Document, Scanned - 10/01/2009 12:00 AM CDT Scanned Document CARDIAC SERVICES ORD ERABLES * HCG URINE QUALITATIVE (10/01/2009 6:06 AM CDT) Pathologist [facility] HCG Qual Urine Negative SEE BELOW [facility] Comment: Normal, Negative Pos, Sensitivity 25 MIU/ML Comment hCG Urine [facility] Comment: ? For optimal results, it is best to test the first urine ? voided in the morning because it contains the greatest ? concentration of hCG. URINE / Unknown 10/01/2009 6 :06 AM CDT 10/01/2009 6:17 AM CDT Molina Thornton MD LAB - URINALYSIS ORD ERABLES Performing Organization Address [facility] de Phone Number [facility] [address] [place] [address] * ALT (08/12/2009 12:00 PM ACCELERATOR OPERATOR) Pathologist [facility] ALT 34 9 - 52 U/L [facility] BLOOD SPECIMEN / Unknown 08/12/2009 12:00 PM ACCELERATOR OPERATOR Woodrow Lunsford MD LAB - CHEMISTRY OR DERABLES Performing Organization Address [facility]/ZIP Co de Phone Number [facility] [address] [place] [address] * AST BLOOD (08/12/2009 12:00 PM ACCELERATOR OPERATOR) AST 32 8 - 39 U/L [facility] BLOOD SPECIMEN / Unknown 08/12/2009 12:00 PM ACCELERATOR OPERATOR Woodrow Lunsford MD LAB - CHEMISTRY OR DERABLES Performing Organization Address [facility] Co de Phone Number [facility] [address] [place] [address] * CULTURE URINE COMPREHENSIVE (04/24/2009 11:25 AM CDT) Only the most recent of2 resultswithin the time period is included. [facility] Culture SEE NOTE [facility] ([facility]) Comment: ??CULTURE, URINE, SPECIAL ?MICRO NUMBER: ?[id number] ??TEST STATUS: ? FINAL ??SPECIMEN SOURCE: ?? URINE (CATHETER COLLECTED) ??SPECIMEN COMMENTS: ADEQUATE ??RESULT: ?GREATER THAN 100,000 CFU/ML OF ENTEROCOCCUS SPECIES ?ENTEROCOCCUS SP. ?INT ?? LILO ?? AMPICILLIN ? S ? 2 ?? NITROFURANTOIN ? S ? <=32 ?? VANCOMYCIN ? S ? <=0.5 Legend: S = Susceptible ??I = Intermediate ??R = Resistant ??NS = Not Susceptible * = Not Tested ??NR = Not Reported ??nn = See Therapy Comments REPORT COMMENT: PREFERRED LAB:->[facility] Test Performed at: [facility] [address] [place], [place] ??[address] GIANA MERRILL MD URINE SPECIMEN COLLECTION, CATHETERIZED / Unknown 04/24/2009 11:25 AM CDT 04/24/2009 5:17 PM CDT Narrative [facility] ([facility]) - 04/27/2009 1:00 PM CDT Preferred Lab:->[facility] Molina Thornton MD LAB - MICROBIOLOGY O RDERABLES Performing Organization Address [facility] de Phone Number [facility] ([facility]) * LAB HISTORICAL RESULTS-ONBASE (03/11/2009) Only the most recent of2 resultswithin the time period is included. 03/11/2009 Historical Provider LAB - CHEMISTRY O RDERABLES Performing Organization Address [facility] de Phone Number [facility] * CARDIAC STRESS TEST ORDER (07/02/2008) Woodrow Lunsford MD CARDIAC SERVICES O RDERABLES * URINALYSIS - POINT OF CARE (AMB) [facility] (07/04/1998 12:00 AM ACCELERATOR OPERATOR) Only the most recent of3 resultswithin the time period is included. Glucose UA neg [facility] Bilirubin UA POCT [facility] Ketones UA POCT neg [facility] Specific [place] UA [facility] Blood Urine POCT neg [facility] pH UA [facility] Protein [facility]A neg [facility] Urobilinogen UA [facility] Nitrite UA ?? [facility] Comment:On pyridium WBC UA Large [facility] Urine specimen (specimen) 07/04/1998 Molina Thornton MD LAB - POINT OF CARE ORDERABLES Performing Organization Address [facility] de Phone Number [facility] Care Teams Computer Tester Relationship Specialty Start Date End Date Antonette Menezes MD [address] [place] [address] PCP - General Family Medicine 06/08/19 Dennys Murry MD [address] [facility] [address] [place] [address] Cardiology 12/05/13 [place] [address] [facility] [address] [place] [address] Orthopedic Surgery 06/08/19 Felipe Witt MD [address] [facility] [address] [place] [address] Cardiovascular Disease 08/22/19
--- OUTSIDE RECORDS SUMMARY | 2024-08-03 14:48 | XMS_ITS | Clinical Summary ---
Author Organization [facility] Address [address] [place] [address] Care Team Providers Care Publications Manager Name Role Phone Ricardo Menezes MD Primary Care Provider [phone] Allergies No known active allergies Medications atorvastatin (LIPITOR) 20 mg tablet Take 20 mg by mouth late in the day. Active calcium-choleca lciferol (OS-KEVAN 500+D) 500 mg(1,250mg) -200 unit tablet Take 1 Tablet by mouth daily. Active omega-3 fatty acids-fish oil 300-1,000 mg Capsule Take 1 Capsule by mouth daily. Active multivitamin (DAILY-AYANA) tablet Take 1 Tablet by mouth daily. Active metoprolol tartrate (LOPRESSOR) 50 mg tablet Take 50 mg by mouth daily. Active fluticasone (FLONASE) 50 mcg/spray [place], Suspension Administer 2 Sprays in each nostril 1 time daily as needed for Rhinitis. Active aspirin (ECOTRIN EC) 81 mg Tablet, Delayed Release (E.C.) Take 81 mg by mouth daily. Active ibuprofen (MOTRIN) 200 mg tablet Take 200 mg by mouth every 6 hours as needed for Pain, Mild. Active Active Problems Problem Noted Date Diagnosed Date Thrombocytopenia 10/18/2016 Rheumatoid arthritis involvi ng multiple sites with positive rheumatoid factor 10/18/2016 Family History Medical History Relation Name Comments Heart Disease Brother 1 Healthy Brother 2 Diabetes Father Other Mother Other Sister Relation Name Status Comments Brother 1 Alive Brother 2 Alive Brother 3 Father Mother Sister Social History Tobacco Use Types Packs/Day Years Used Date Smoking Tobacco: Never Alcohol Use Standard Drinks/Week Comments Yes 7 (1 standard drink = 0.6 oz pur e alcohol) Comments No Sex and Gender Information Value Date Recorded Sex Assigned at Not on file Legal Sex Female 4:27 AM CRAFT COORDINATOR Gender Identity Not on file Sexual Orientation Not on file Last Filed Vital Signs Vital Sign Reading Time Taken Comments Blood Pressure 146/70 09/08/2017 1:31 PM CRAFT COORDINATOR Pulse 70 09/08/2017 1:31 PM CRAFT COORDINATOR Temperature 36.6 ??C (97.8 ??F) 09/08/2017 1:31 PM CS T Respiratory Rate 16 09/08/2017 1:31 PM CRAFT COORDINATOR Oxygen Saturation 91% 09/08/2017 1:31 PM CRAFT COORDINATOR Inhaled Oxygen Concentration - - Weight 59.4 kg (131 lb) 09/08/2017 1:31 PM CRAFT COORDINATOR Height 161.3 cm (5' 3.5 ) 09/08/2017 1:31 PM CRAFT COORDINATOR Body Mass Index 22.84 09/08/2017 1:31 PM CRAFT COORDINATOR Plan of Treatment Health Maintenance Due Date Last Done Comments DTAP/TDAP/TD VACCINES (1 - Tdap) 1959 PNEUMOCOCCAL VACCINE 65+ YEA RS (1 of 1 - PCV) 1990 ZOSTER VACCINE (1 of 2) 1990 RSV VACCINE (60+ or ) (1 - 1-dose 75+ series) 2015 INFLUENZA VACCINE (#1) 2024 OSTEOPOROSIS SCREENING Completed 09/14/2018, 2014 Insurance MEDICARE PART A AND B [facility] Care Teams Publications Manager Relationship Specialty Start Date End Date Ricardo Menezes MD PCP - General Family Practice 10/22/16
--- OUTSIDE RECORDS SUMMARY | 2024-08-03 14:48 | XMS_ITS | Clinical Summary ---
Author Organization [facility] [address] [facility] [address] Address [address] [place] [address] Care Team Providers Care Horse Racing Manager Name Role Phone Antonette Menezes MD Primary Care Provider + Allergies Active Allergy Reactions Criticality Noted Date Comments Jay Inhibitors Cough Low 11/30/2018 NOt allergy, side effect Medications fluticasone (FLONASE) 50 mcg/actuation nasal spray spray 2 spray by intranasal route 2 times every day in each nostril 0 spray 0 05/07/20 15 Active Additional Information Patient not taking.Reported on 07/24/2024 calcium carbonate-vitam in D3 (CALCIUM 600 WITH VITAMIN D3) 600 mg(1,500mg) -500 unit capsule 0 11/08/19 12 Active vit C/vit E/lutein/min/om ega-3 (OCUVITE ORAL) Take by mouth 2 (two) times a day Active memantine XR (NAMENDA XR) 7 mg capsule,sprinkl e,ER 24hr Take by mouth daily 02/12/20 22 Active benzonatate (TESSALON) 200 mg capsule TAKE 1 CAPSULE BY MOUTH THREE TIMES A DAY NEEDED FOR COUGH 11/23/19 23 Active amLODIPine (NORVASC) 2.5 mg tabletIndicatio ns:Benign hypertension TAKE 1 TABLET BY MOUTH DAILY 90 tablet 3 08/15/19 24 Active Eliquis 5 mg tablet TAKE 1 TABLET BY MOUTH EVERY 12 HOURS 60 tablet 8 11/28/19 24 Active cyanocobalamin (Vitamin B-12) 1,000 mcg sublingual tablet Take 1 tablet (1,000 mcg total) by mouth daily Active losartan-hydroC HLOROthiazide (HYZAAR) 100-12.5 mg per tablet Take 1 tablet by mouth daily 90 tablet 2 06/08/20 24 Active atorvastatin (LIPITOR) 20 mg tablet TAKE 1 TABLET BY MOUTH DAILY 90 tablet 3 06/18/20 24 Active metoprolol tartrate (LOPRESSOR) 25 mg immediate release tablet TAKE 1 TABLET BY MOUTH EVERY 8 HOURS 270 tablet 3 07/18/19 25 Active furosemide (LASIX) 20 mg tabletIndicatio ns:Acute on chronic diastolic heart failure (CMS/HCC) (HCC) Take 1 tablet (20 mg total) by mouth daily 90 tablet 3 07/24/19 25 026 Active metoprolol tartrate (LOPRESSOR) 25 mg immediate release tablet TAKE 1 TABLET BY MOUTH EVERY 8 HOURS 270 tablet 04/18/20 24 025 Discontinued Active Problems Problem Noted Date Diagnosed Date Medication side effects 2023 Paroxysmal atrial fibrillation (CMS/HCC) 023 CKD (chronic kidney disease) stage 3, GFR 30-59 ml/min 06/22/2022 Chronic anticoagulation 06/22/2022 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 rhythm 11/19/2019 AJY-inhibitor cough 11/30/2018 PSVT (paroxysmal supraventricular tachycardia) 0 11/30/2018 Thoracic aortic aneurysm 09/05/2018 Premature atrial contractions 09/05/2018 Nonrheumatic aortic valve insufficiency 09/06/19 19 Mitral valve regurgitation 09/05/2018 Benign hypertension 11/17/2013 Overview (10/07/2016): BENIGN HYPERTENSION Mixed hyperlipidemia 11/17/2013 Overview (10/09/2016): HYPERLIPIDEMIA NEC/NOS Rheumatoid arthritis 08/10/2012 Overview (10/09/2016): RHEUMATOID ARTHRITIS Encounters Date Type Department Care Team Description 07/24/2024 10:00 AM FOREIGN DIPLOMAT Office Visit [facility] Cardiology [address] [place] [id number] Sully Vivas NP Acute on chronic diastolic heart failure (CMS/HCC) (HCC) (Primary Dx); Paroxysmal atrial fibrillation (CMS/HCC) (HCC); Nonrheumatic aortic valve insufficiency; Nonrheumatic mitral valve regurgitation; Aneurysm of ascending aorta without rupture (HCC) 07/03/2024 Telephone [facility] Cardiology [address] [facility] [address] [place] [address] Omkar Lee MD 05/15/2024 11:00 AM FOREIGN DIPLOMAT Office Visit [facility] Cardiology at [address] [place] [address] Omkar Lee MD Paroxysmal atrial fibrillation (CMS/HCC) (HCC) (Primary Dx); Nonrheumatic aortic valve insufficiency; Chronic anticoagulation; Benign hypertension; Nonrheumatic mitral valve regurgitation; Mixed hyperlipidemia; Aneurysm of ascending aorta without rupture (HCC) from Last 3 Months Immunizations Name Administration Dates Next Due Influenza, Split 04/21/2012 Surgical History Surgery Date Site/Laterality Comments OTHER SURGICAL HISTORY bladder lift, rt mid foot surgery, lt bunionectomy OTHER SURGICAL HISTORY lt foot epps neuroma HYSTERECTOMY Hysterectomy TONSILLECTOMY Tonsillectomy BUNIONECTOMY 07/04/2020 - 07/03/2021 Left Medical History Medical History Date Comments Hypertension Heart murmur Hyperlipidemia Arthritis Family History Medical History Relation Name Comments Prostate cancer Brother 2 Cancer -pros vilchis; Coronary artery disease Brother 3 Med nary artery disease; Hyperlipidemia Brother 4 Hyperlipidemi a; Other Brother 5 Alive and well; Diabetes type II Father Diabetes -T ype 2; Osteoarthritis Father Osteoarthriti s; Alzheimer's disease Mother Alzheime r's Disease; Osteoarthritis Mother Osteoarthriti s; Relation Name Status Comments Brother 1 Alive Brother 2 Brother 3 Brother 4 Brother 5 Father (Age Late 70's) Mother (Age 80's) Social History Tobacco Use Types Packs/Day Years Used Date Smoking Tobacco: Never Smokeless Tobacco: Never Tobacco Cessation:Counseling Given: Not Answered Alcohol Use Standard Drinks/Week Comments Yes 0 (1 standard drink = 0.6 oz pur e alcohol) Comments Unknown Sex and Gender Information Value Date Recorded Sex Assigned at Not on file Legal Sex Female 2:17 PM FOREIGN DIPLOMAT Gender Identity Not on file Sexual Orientation Not on file Obstetrics History Last Filed Vital Signs Vital Sign Reading Time Taken Comments Blood Pressure 130/68 07/24/2024 10:03 AM FOREIGN DIPLOMAT Pulse 65 07/24/2024 10:03 AM FOREIGN DIPLOMAT Temperature - - Respiratory Rate - - Oxygen Saturation 97% 07/24/2024 10:03 AM FOREIGN DIPLOMAT Inhaled Oxygen Concentration - - Weight 62.1 kg (137 lb) 07/24/2024 10:03 AM FOREIGN DIPLOMAT Height 160 cm (5' 3 ) 07/24/2024 10:03 AM FOREIGN DIPLOMAT Body Mass Index 24.27 07/24/2024 10:03 AM FOREIGN DIPLOMAT Plan of Treatment Health Maintenance Due Date Last Done Comments Depression Screening 1940 Fall Risk Assessment 1940 Osteoporosis Screening-Bone Density Scan 1940 DTaP/Tdap/Td Vaccine (1 - Tdap) 1951 Hepatitis B Screening 1958 Well Visit 65+ 2005 Pneumococcal vaccine 65+ (2 of 2 - PCV) 10/19/2018 10/19/2017 Zoster Vaccine (2 of 2) 02/14/2019 12/20/2018 Influenza Vaccine (#1) 2024 9, 05/29/2018, 04/21/2012 Insurance MEDICARE [facility] MEDICARE [facility] Address: [address] [address] [facility] MEDICARE Care Teams Horse Racing Manager Relationship Specialty Start Date End Date Antonette Menezes MD [address] [place] [address] [place] [address] PCP - General Family Medicine 07/24/24
--- OUTSIDE RECORDS SUMMARY | 2024-08-03 14:48 | XMS_ITS | Encounter Summary ---
Author Organization [facility] Address [address] [place] [address] Care Team Providers Care Poultry Feed Supervisor Name Role Phone Woodrow Lunsford MD Primary Care Provider Paula vailable Dennys Murry MD Unavailable Dennys Murry MD Primary Care Provider [phone] Ricardo Menezes MD Primary Care Provider [phone] Antonette Menezes MD Primary Care Provider Shaka Segovia MD Unavailable [phone] Felipe Witt MD Unavailable [phone] Encounter Details Date Type Department Care Team (Late st Contact Info) Description 09/22/2010 SS Outpatient Visit EXTERNAL NON-SS DEPT Dennys Murry MD [address] [facility] [address] [place] [address] Social History Tobacco Use Types Packs/Day Years Used Date Smoking Tobacco: Never Alcohol Use Standard Drinks/Week Comments Yes 0 (1 standard drink = 0.6 oz pur e alcohol) Sex and Gender Information Value Date Recorded Sex Assigned at Not on file Gender Identity Not on file Sexual Orientation Not on file documented as of this encounter Plan of Treatment Not on file documented as of this encounter Visit Diagnoses Not on filedocumented in this encounter Care Teams Poultry Feed Supervisor Relationship Specialty Start Date End Date Woodrow Lunsford MD PCP - General 02/13/09 12/06/13 Dennys Murry MD [address] [place] [address] PCP - General Cardiology 12/12/13 05/01/14 Ricardo Menezes MD [address] [place] [address] PCP - General Family Medicine 05/02/14 06/07/19 Antonette Menezes MD [address] [place] [address] [place] [address] PCP - General Family Medicine 06/08/19 Dennys Murry MD [address] [place] [address] Cardiology 12/05/13 [place] [address] [facility] 100 [place] [address] Orthopedic Surgery 06/08/19 Felipe Witt MD [address] [place] [address] Cardiovascular Disease 08/22/19 documented as of this encounter
--- OUTSIDE RECORDS SUMMARY | 2024-08-03 14:48 | XMS_ITS | Encounter Summary ---
Author Organization [facility] Address [address] [facility] [place] [address] Care Team Providers Care Fire Observer Name Role Phone Dennys Murry MD Unavailable [phone] Ricardo Menezes MD Primary Care Provider [phone] Antonette Menezes MD Primary Care Provider [phone] Shaka Segovia MD Unavailable [phone] Felipe Witt MD Unavailable Encounter Details Date Type Department Care Team (Late st Contact Info) Description 06/01/2018 Lab Requisition [facility] Care D[facility] Lab [address] [facility], [place] [address] Bib Mckinnon MD [address] [place] [address] Social History Tobacco Use Types Packs/Day Years Used Date Smoking Tobacco: Never Smokeless Tobacco: Never Alcohol Use Standard Drinks/Week Comments Yes 1 (1 standard drink = 0.6 oz pur e alcohol) with meals Sex and Gender Information Value Date Recorded Sex Assigned at Not on file Gender Identity Not on file Sexual Orientation Not on file documented as of this encounter Functional Status Functional Status Response Date of Assess ment Is person deaf or have serious hearing difficult y? No 04/05/2017 Is person blind or have serious difficulty seein g? No 04/05/2017 Does person have serious dif ficulty walking/climbing stairs? No 04/05/2017 Does person have difficulty dressing/bathing? No 04/05/2017 Does person have difficulty doing errands alone? No 04/05/2017 Cognitive Status Response Date of Assessm ent Does person have difficulty concentrating/remembering/making decisions? No 04/05/2017 documented as of this encounter Plan of Treatment Not on file documented as of this encounter Procedures Procedure Name Priority Date/Time Associated Diagnosis Comments DERMATOPATHOLOGY Routine 05/31/2018 12:0 0 AM MOBILE SOLUTIONS ARCHITECT documented in this encounter Results * DERMATOPATHOLOGY (05/31/2018 12:00 AM MOBILE SOLUTIONS ARCHITECT) Case Report Dermatopathology Report ? Case: [id number] ? Authorizing Provider: ??Bib Mckinnon MD ?Collected: ? 05/31/2018 12:00 AM ? Pathologist: ? Troy Bailey MD ? Received: ?06/01/2018 01:54 PM ? Specimen: ?Skin, left lateral lower buttock ? 8 2:37 PM MOBILE SOLUTIONS ARCHITECT DERMATOPATHOLOGY LABORATORY Final Diagnosis Specimen A. SKIN, left lateral lower buttock: EPIDERMOID CYST (L72.0) 8 2:37 PM MOBILE SOLUTIONS ARCHITECT DERMATOPATHOLOGY LABORATORY Clinical History R/O EIC. 8 2:37 PM MOBILE SOLUTIONS ARCHITECT DERMATOPATHOLOGY LABORATORY Gross Description Specimen A: Received is one formalin filled container labeled with the patients name and designated. The specimen consists of a [id number] excision of skin. The specimen is serially sectioned and a construction sales representative section is submitted in cassette 1. Jar 1. 2:37 PM [facility] DERMATOPATHOLOGY LABORATORY Microscopic Description Specimen A. SKIN, left lateral lower buttock: Within the dermis, there is a space lined by epithelium that resembles normal epidermis and the infundibular portion of the hair follicle. 2:37 PM [facility] DERMATOPATHOLOGY LABORATORY Disclaimer An external and internal positive and negative controls are appropriate for the histochemical, immunohistochemical and immunofluorescence stain(s) in this case (if any), except where stated explicitly. The performance characteristics of the stain(s) cited in this report were developed and its performance characteristic determined by the Dermatopathology Laboratory at [facility]. These tests need not be, and therefore are not, approved by the [place] Food and Drug Administration. The tests are used for clinical purposes. Billing Codes Specimen Charges Stain Charges 72781 1 2:37 PM [facility] DERMATOPATHOLOGY [facility]ORATORY Embedded Images 2:37 PM [facility] DERMATOPATHOLOGY [facility]ORATORY Pathology/Cytolog y TISSUE SPECIMEN FROM SKIN / Unknown 05/31/2018 06/01/2018 1:54 PM MOBILE SOLUTIONS ARCHITECT Bib Mckinnon MD LAB - PATHOLOGY/CYTO LOGY ORDERABLES DERMATOPATHOLOGY LABORATORY [facility] - Department of Dermatology [address] [place] [address], [address] Floor Lab [address] [phone] documented in this encounter Visit Diagnoses Not on filedocumented in this encounter Care Teams Fire Observer Relationship Specialty Start Date End Date Ricardo Menezes MD [facility] [place] [address] PCP - General Family Medicine 05/02/14 06/07/19 Antonette Menezes MD [address] [place] [id number] PCP - General Family Medicine 06/08/19 Dennys Murry MD [address] [facility] [address] [place] [address] Cardiology 12/05/13 [place] [address] [facility] [address] [place] [address] Orthopedic Surgery 06/08/19 Felipe Witt MD [address] [facility] [address] [place] [address] Cardiovascular Disease 08/22/19 documented as of this encounter
--- OUTSIDE RECORDS SUMMARY | 2024-08-03 14:48 | XMS_ITS | Encounter Summary ---
Author Organization [facility] Address [address] [place] [address] Care Team Providers Care Visitor Services Representative Name Role Phone Woodrow Lunsford MD Primary Care Provider Paula vailable Dennys Murry MD Unavailable [phone] Dennys Murry MD Primary Care Provider Ricardo Menezes MD Primary Care Provider [phone] Antonette Menezes MD Primary Care Provider Shaka Segovia MD Unavailable [phone] Felipe Witt MD Unavailable [phone] Encounter Details Date Type Department Care Team (Late st Contact Info) Description 10/25/2011 SS Outpatient Visit EXTERNAL NON-SS DEPT Dennys Murry MD [address] [facility] 200 [place] [address] Social History Tobacco Use Types Packs/Day Years [...] on filedocumented in this encounter Care Teams Visitor Services Representative Relationship Specialty Start Date End Date Woodrow Lunsford MD PCP - General 02/13/09 12/06/13 Dennys Murry MD [address] [place] [address] PCP - General Cardiology 12/12/13 05/01/14 Ricardo Menezes MD [address] [place] [address] PCP - General Family Medicine 05/02/14 06/07/19 Antonette Menezes MD [address] [place] [address] [place] [address] PCP - General Family Medicine 06/08/19 Dennys Murry MD [address] [place] [address] Cardiology 12/05/13 [place] [address] [facility] 100 [place] [address] Orthopedic Surgery 06/08/19 Felipe Witt MD [address] [place] [address] Cardiovascular Disease 08/22/19 documented as of this encounter
--- OUTSIDE RECORDS SUMMARY | 2024-08-03 14:48 | XMS_ITS | Clinical Summary ---
Author Organization [facility] Address [address] [place] [address] Care Team Providers Care Janitorial Cleaner Name Role Phone Dennys Murry MD Unavailable [phone] Antonette Menezes MD Primary Care Provider [phone] Shaka Segovia MD Unavailable [phone] Felipe Witt MD Unavailable [phone] Source Comments [facility],non-owned Affiliates and Associated Physician Practices is amultiple site organization consisting of ambulatory clinics and hospital sitesin [place], [place], [place] and [place]. This disclosure is being madepursuant to the Care Everywhere program and may not contain all information available regarding this patient. Last updated 18.[facility] Allergies No known active allergies Medications * Be aware that medications may not be up to date on this document. Alwaysverify current medications with the patient. Medication Sig Dispensed Refills Start Date End Date Status metoprolol succinate XL 24hr (TOPROL XL) 50 MG tablet Take 50 mg by mouth at bedtime. Active calcium-vitamin D (OS-KEVAN 500 + D) 500-200 MG-UNIT tablet Take 1 Tab by mouth once daily. Active atorvastatin (LIPITOR) 20 MG tablet Take 20 mg by mouth once daily Active fluticasone propionate (FLONASE) 50 MCG/ACT nasal spray [employer] 2 Sprays into each nostril once daily Active Multiple Vitamins-Minerals (PROSIGHT) tablet Take 1 tablet by mouth once daily Active ASPIRIN 81 PO Active melatonin 10 MG capsule Take 10 mg by mouth at bedtime Active HYDROcodone-acetamino phen (NORCO) 5-325 MG tablet Take 1 (one) tablet by mouth every 6 hours as needed for Pain 30 tablet 12/02/2020 Active Active Problems Problem Noted Date Diagnosed [...] of thoracic aorta 12/05/2013 Cystocele, midline 10/01/2009 Family History Medical History Relation Name Comments CVA Brother Cancer Maternal Grandmother colon Hypertension Other 1 Heart defect Other 2 mitral valve le ak, aortic valve leak Arthritis Other 3 finger, hips Cancer Paternal Aunt colon Relation Name Status Comments Brother Maternal Grandmother colon Other 1 Other 2 Other 3 Paternal Aunt colon Alive Social History Tobacco Use Types Packs/Day Years [...] Mass Index 22.43 11/27/2020 10:05 AM CDT Plan of Treatment Health Maintenance Due Date Last Done Comments BONE DENSITY TESTING 1940 MEDICARE AWV ? 12 MONTHS 1940 DTAP/TDAP/TD VACCINES (1 - Tdap) 1959 PNEUMOCOCCAL VACCINE 50+ (1 of 1 - PCV) 1990 ZOSTER VACCINE (1 of 2) 1990 Respiratory Syncytial Virus (RSV) Vaccine Pt: or over 60 yrs (1 - 1-dose 75+ series) 2015 COVID-19 VACCINE ( - 2023-2 5 season) 2024 INFLUENZA VACCINE (#1) 2024 04/21/2012 DEPRESSION SCREENING 07/04/2024 HEPATITIS B VACCINE Aged Out No longe r eligible based on patient's age to complete this topic HIB VACCINE Aged Out No longer eligi ble based on patient's age to complete this topic HPV VACCINE Aged Out No longer eligi ble based on patient's age to complete this topic MENINGOCOCCAL (Group B) VACCINE Aged Out No longer eligible based on patient's age to complete this topic MENINGOCOCCAL VACCINE Aged Out No krissy will eligible based on patient's age to complete this topic Medical Devices Implanted Type Area Speech Correction Consultant Device Identifier Shelf Expiration Date Model / Serial / Lot Cmnt Bone Djo Srg Cblt 40gm Hvisc Strl Implanted:Qty: 1 on 08/27/2019 by Shaka Segovia MD at [facility] Left: Knee [employer] 05/02/2020 600-15-000 / / [id number] Tray Tib 71mm Kn Cocr I Beam Implanted:Qty: 1 on 08/27/2019 by Shaka Segovia MD at [facility] Left: Knee Lv [employer]omet 07/08/2029 [id number] / / [id number] Cmpnt Ptlr 28mm 1 Pg Wire Ascnt Arcm Kn Implanted:Qty: 1 on 08/27/2019 by Shaka Segovia MD at [facility] Left: Knee Lv [employer] 07/20/2024 [id number] / / [id number] Cmpnt Fem Kn Lt Cr Cmnt Prm Vngrd Intlk Implanted:Qty: 1 on 08/27/2019 by Shaka Segovia MD at [facility] Left: Knee L[employer] 06/07/2029 [id number] / / [id number] As Tibial Bearing Implanted:Qty: 1 on 08/27/2019 by Shaka Segovia MD at [facility] Left: Knee [employer] 11/21/2023 [id number] / / [id number] Joint Toe Swnsn 0s Lat Mtp Sheela Ti Grmt Implanted:Qty: 1 on 12/02/2020 by Ankita Hargrove MD at [facility] Left: Foot [employer] 03/14/2027 [id number] / / [id number] Advance Directives Documents on File Type Date Recorded Patient Director Medical Economics Expl anation Adv Directive/Living Will/POA 08/10/2019 5:02 PM Adv Directive/Living Will/POA 10/03/2009 9:35 AM POA * Full Code (Latest Code Status on File) Date Activated Date Inactivated Comments 08/27/2019 10:49 AM 08/29/2019 1:04 PM * Full Code Date Activated Date Inactivated Comments 10/01/2009 9:14 AM 10/02/2009 9:51 PM Care Teams Janitorial Cleaner Relationship Specialty Start Date End Date Antonette Menezes MD [address] [place] [id number] PCP - General Family Medicine 06/08/19 Dennys Murry MD [address] [facility] [address] [place], [place] [id number] Cardiology 12/05/13 [place] [address] [facility] [address] [place] [address] Orthopedic Surgery 06/08/19 Felipe Witt MD [address] [facility] [address] [place] [address] Cardiovascular Disease 08/22/19
--- OUTSIDE RECORDS SUMMARY | 2024-08-03 14:48 | XMS_ITS | Encounter Summary ---
Author Organization [facility] Healthcare Address [address] [place] [address] Care Team Providers Care Golf Stud Riveter Name Role Phone Antonette Menezes MD Primary Care Provider + Encounter Details Date Type Department Care Team (Late st Contact Info) Description 07/03/2024 Telephone [facility] Cardiology [address] [place] [address] Omkar Lee MD [address] [address] Social History Tobacco Use Types Packs/Day Years Used Date Smoking Tobacco: Never Smokeless Tobacco: Never Alcohol Use Standard Drinks/Week Comments Yes 0 (1 standard drink = 0.6 oz pur e alcohol) Comments Unknown Sex and Gender Information Value Date Recorded Sex Assigned at Not on file Legal Sex Female 2:17 PM AGENT PRODUCER Gender Identity Not on file Sexual Orientation Not on file documented as of this encounter Miscellaneous Notes * Telephone Encounter - Ashley Handley RN - 07/03/2024 1:13 PM AGENT PRODUCER LM on Quiana's VM requesting a callback to discuss and/or offered her an appt with CT tomorrow we have 0838 or 1500 available as well. T PRODUCER * Telephone Encounter - Ricardo Boonca - 07/03/2024 12:27 PM CST Quiana called to report pt had blood work done at Dr. Babin office that could indicate possible heart failure. Also states patient has edema and redness on her legs. Advised her to contact Dr. Menezes and have them fax blood work results. Quiana requested an appt be scheduled with [facility]. Offered 08/10, she declined and requested something sooner. Contact: T PRODUCER documented in this encounter Plan of Treatment Not on file documented as of this encounter Visit Diagnoses Not on filedocumented in this encounter Care Teams Golf Stud Riveter Relationship Specialty Start Date End Date Antonette Menezes MD [facility] [facility] [place] [address] PCP - General Family Medicine 07/24/24 documented as of this encounter
--- OUTSIDE RECORDS SUMMARY | 2024-08-03 14:48 | XMS_ITS | Referral Summary ---
Author Organization [facility] Address [address] [facility] [place] [address] Care Team Providers Care Derrick Barge Operator Name Role Phone Dennys Murry MD Unavailable Antonette Menezes MD Primary Care Provider [phone] Shaka Segovia MD Unavailable [phone] Felipe Witt MD Unavailable [phone] Source Comments [facility],non-owned Affiliates and Associated Physician Practices is amultiple site organization consisting of ambulatory clinics and hospital sitesin [place], [place], [place] and [place]. This disclosure is being madepursuant to the Care Everywhere program and may not contain all information available regarding this patient. Last updated 18.[facility] Allergies No known active allergies Medications [...] fluticasone propionate (FLONASE) 50 MCG/ACT nasal spray [employer] 2 Sprays into each nostril once daily [...] Mass Index 22.43 11/27/2020 10:05 AM CDT Functional Status Functional Status Response Date of Assess ment Is person deaf or have serious hearing difficult y? No 08/27/2019 Is person blind or have serious difficulty seein g? No 08/27/2019 Does person have serious dif ficulty walking/climbing stairs? Yes 08/27/2019 Does person have difficulty dressing/bathing? No 08/27/2019 Does person have difficulty doing errands alone? No 08/27/2019 Cognitive Status Response Date of Assessm ent Does person have difficulty concentrating/remembering/making decisions? No 08/27/2019 Plan of Treatment Not on file Medical Devices Implanted Type Area Distribution Sales Manager Device Identifier Shelf Expiration Date Model / Serial / Lot Cmnt Bone Djo Srg Cblt 40gm Hvisc Strl Implanted:Qty: 1 on 08/27/2019 by Shaka Segovia MD at [facility] Left: Knee [employer] 05/02/2020 600-15-000 / / [id number] Tray Tib 71mm Kn Cocr I Beam Implanted:Qty: 1 on 08/27/2019 by Shaka Segovia MD at [facility] Left: Knee Lv [employer] 07/08/2029 [id number] / / [id number] Cmpnt Ptlr 28mm 1 Pg Wire Ascnt Arcm Kn Implanted:Qty: 1 on 08/27/2019 by Shaka Segovia MD at [facility] Left: Knee L[employer] 07/20/2024 [id number] / / [id number] Cmpnt Fem Kn Lt Cr Cmnt Prm Vngrd Intlk Implanted:Qty: 1 on 08/27/2019 by Shaka Segovia MD at [facility] Left: Knee L[employer] 06/07/2029 [id number] / / [id number] As Tibial Bearing Implanted:Qty: 1 on 08/27/2019 by Shaka Segovia MD at [facility] Left: Knee [employer] 11/21/2023 [id number] / / [id number] Joint Toe Swnsn 0s Lat Mtp Sheela Ti Grmt Implanted:Qty: 1 on 12/02/2020 by Ankita Hargrove MD at [facility] Left: Foot [employer] 03/14/2027 [id number] / / [id number] Advance Directives Documents on File Type Date Recorded 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 Adv Directive/Living Will/POA 08/10/2019 5:02 PM Adv Directive/Living Will/POA 10/03/2009 9:35 AM POA * Full Code (Latest Code Status on File) Date Activated Date Inactivated Comments 08/27/2019 10:49 AM 08/29/2019 1:04 PM * Full Code Date Activated Date Inactivated Comments 10/01/2009 9:14 AM 10/02/2009 9:51 PM Care Teams Derrick Barge Operator Relationship Specialty Start Date End Date Antonette Menezes MD [address] [place] [id number] PCP - General Family Medicine 06/08/19 Dennys Murry MD [address] [facility] [address] [place] [address] Cardiology 12/05/13 [place] [address] [place] [address] Orthopedic Surgery 06/08/19 Felipe Witt MD [address] [place] [address] Cardiovascular Disease 08/22/19
--- OUTSIDE RECORDS SUMMARY | 2024-08-03 14:48 | XMS_ITS | Referral Summary ---
Author Organization [facility] [address] [address] [place] [address] Care Team Providers Care Surgical Instrument Mechanic Name Role Phone Antonette Menezes MD Primary Care Provider + Encounters Date Type Department Care Team Description 07/24/2024 10:00 AM TEAR DOWN MAN Office Visit [facility] Cardiology [address] [place] [address] [address] [place] [address] Sully Vivas NP Acute on chronic diastolic heart failure (CMS/HCC) (HCC) (Primary Dx); Paroxysmal atrial fibrillation (CMS/HCC) (HCC); Nonrheumatic aortic valve insufficiency; Nonrheumatic mitral valve regurgitation; Aneurysm of ascending aorta without rupture (HCC) 07/03/2024 Telephone [facility] Cardiology [address] [place] [address] [address] [place] [address] Omkar Lee MD 05/15/2024 11:00 AM TEAR DOWN MAN Office Visit [facility] Cardiology at [address] [place] [address] Omkar Lee MD Paroxysmal atrial fibrillation (CMS/HCC) (HCC) (Primary Dx); Nonrheumatic aortic valve insufficiency; Chronic anticoagulation; Benign hypertension; Nonrheumatic mitral valve regurgitation; Mixed hyperlipidemia; Aneurysm of ascending aorta without rupture (HCC) from Last 3 Months Allergies Active Allergy Reactions Criticality Noted Date [...] Medication side effects 2023 Paroxysmal atrial fibrillation ([facility]/HCC) 023 CKD (chronic kidney disease) stage 3, GFR 30-59 ml/min 06/22/2022 Chronic anticoagulation 06/22/2022 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 rhythm 11/19/2019 JAY-inhibitor cough 11/30/2018 PSVT (paroxysmal supraventricular tachycardia) 0 11/30/2018 Thoracic aortic aneurysm 09/05/2018 Premature atrial contractions 09/05/2018 Nonrheumatic aortic valve insufficiency 09/06/19 19 Mitral valve regurgitation 09/05/2018 Benign hypertension 11/17/2013 Overview (10/07/2016): BENIGN HYPERTENSION Mixed hyperlipidemia 11/17/2013 Overview (10/09/2016): HYPERLIPIDEMIA NEC/NOS Rheumatoid arthritis 08/10/2012 Overview (10/09/2016): RHEUMATOID ARTHRITIS Immunizations Name Administration Dates Next Due Influenza, Split 04/21/2012 Social History Tobacco Use Types Packs/Day Years Used Date Smoking Tobacco: Never Smokeless Tobacco: Never Tobacco Cessation:Counseling Given: Not Answered Alcohol Use Standard Drinks/Week Comments Yes 0 (1 standard drink = 0.6 oz pur e alcohol) Comments Unknown Sex and Gender Information Value Date Recorded Sex Assigned at Not on file Legal Sex Female 2:17 PM TEAR DOWN MAN Gender Identity Not on file Sexual Orientation Not on file Last Filed Vital Signs Vital Sign Reading Time Taken Comments Blood Pressure 130/68 07/24/2024 10:03 AM TEAR DOWN MAN Pulse 65 07/24/2024 10:03 AM TEAR DOWN MAN Temperature - - Respiratory Rate - - Oxygen Saturation 97% 07/24/2024 10:03 AM TEAR DOWN MAN Inhaled Oxygen Concentration - - Weight 62.1 kg (137 lb) 07/24/2024 10:03 AM TEAR DOWN MAN Height 160 cm (5' 3 ) 07/24/2024 10:03 AM TEAR DOWN MAN Body Mass Index 24.27 07/24/2024 10:03 AM TEAR DOWN MAN Plan of Treatment Not on file Insurance [facility] MEDICARE [facility] MEDICARE Care Teams Surgical Instrument Mechanic Relationship Specialty Start Date End Date Antonette Menezes MD [address] [facility] [address] PCP - General Family Medicine 07/24/24
--- OUTSIDE RECORDS SUMMARY | 2024-08-03 14:48 | XMS_ITS | Clinical Summary ---
Author Organization [facility] Address [address] [place] [address]. [place] [address] Care Team Providers Care Signal Helper Name Role Phone Unavailable Primary Care Provider Unavailabl e Social History Tobacco Use Types Packs/Day Years Used Date Smoking Tobacco: Never Assessed Comments Unknown Sex and Gender Information Value Date Recorded Sex Assigned at Not on file Legal Sex Female 10:22 PM PHYSICIAN NON INVASIVE CARDIOLOGIST Gender Identity Not on file Sexual Orientation Not on file Plan of Treatment Health Maintenance Due Date Last Done Comments DTaP, Tdap and Td Vaccines ( 1 - Tdap) 1959 Zoster Vaccines (1 of 2) 1990 Dexa Scan (General) 2005 Pneumococcal Vaccine: 65+ Ye ars (1 of 1 - PCV) 2005 RSV Immunization or 60+ Years (1 - 1-dose 75+ series) 2015 COVID-19 Vaccine ( - 2023-2 5 season) 2024 Influenza Adult (#1) 2024 Meningococcal B Vaccine Aged Out No l onger eligible based on patient's age to complete this topic Meningococcal Vaccine Aged Out No krissy will eligible based on patient's age to complete this topic RSV Immunizations Under 20 Months Aged Out No longer eligible based on patient's age to complete this topic Advance Directives Documents on File Type Date Recorded Patient Training Specialist Expl anation Advance Directives and Living Will 11/14/2017 12:00 AM [employer] Advance Directives and Living Will 11/14/2017 12:00 AM [employer] Advance Directives and Living Will 11/09/2017 12:00 AM [employer] Advance Directives and Living Will 11/09/2017 12:00 AM [employer]
[2024-08-03 19:29] LABS: Anion Gap 11 mmol/L (4-12); Blood Urea Nitrogen 34 mg/dL (7-17); Calcium 9.6 mg/dL (8.4-10.2); Carbon Dioxide 29 mmol/L (22-30); Chloride 98 mmol/L (98-107); Estimated Glomerular Filt Rate 50; Glucose 81 mg/dL (65-110); Potassium 4.6 mmol/L (3.4-5.0); Sodium 138 mmol/L (137-145)
== END 2024-08-03 14:46 | disposition home or self-care (01) ==
LOC: ANHGOSHLAB 14:46
PROVIDERS: PCP Family Medicine; Visit Provider Nurse Practitioner Adult Health
DX: I50.33 Acute on chronic diastolic (congestive) heart failure (principal)
CPT/HCPCS: 36415; 80048

== ENCOUNTER 2025-04-18 10:42 | Outpatient (CLI) | payer MEDICARE, SELFPAY ==
--- NOTE | ~2025-04-18 | XR_ITS ---
EXAMINATION: XR chest 2V, 04/18/2025 10:50 CDT HISTORY: Cough, unspecified, cough x 5 months, no inj COMPARISON: No comparisons available. Technique: 2 views obtained. Findings: The lungs are clear, no effusion. No pneumothorax. Heart is normal size. Mediastinal and hilar contours are within normal limits. Bony thorax no acute abnormality. Impression: No acute cardiopulmonary abnormality. Reviewed, dictated and finalized at location P. Impression: No acute cardiopulmonary abnormality.
== END 2025-04-18 10:43 | disposition home or self-care (01) ==
LOC: GOSHIMG 10:43
PROVIDERS: PCP Internal Medicine Cardiovascular Disease; Visit Provider Family Medicine
DX: R05.9 Cough, unspecified (principal)
CPT/HCPCS: 71046